=== PATIENT | male | born 2000 | race Caucasian/White ===

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

== ENCOUNTER → 2020-01-17 12:23 | Outpatient (CLI) | payer OTHER, SELFPAY ==
[2020-01-21 20:07] LABS: QNTFERON TB Mitogen Value > 10.00 IU/mL (.); QNTFERON TB Nil Value 0.06 IU/mL (.); QNTFERON TB1+ Ag Value 0.07 IU/mL (.); QNTFERON TB2+ Ag Value 0.07 IU/mL (.)
[2020-01-22 15:16] LABS: QNTIFERON TB Positive Criteria Negative (Negative)
== END ==
PROVIDERS: PCP Pediatrics; Referring Provider Dermatology; Visit Provider Dermatology
DX: L40.0 Psoriasis vulgaris (principal); L70.0 Acne vulgaris; Z79.899 Other long term (current) drug therapy
CPT/HCPCS: 36415; 86480

== ENCOUNTER → 2021-12-08 | Outpatient (CLI) | payer OTHER, MEDICAID, SELFPAY ==
[2021-12-08 17:44] LABS: Absolute Lymphocyte Count 1.55 X10^3/uL (0.83-4.51); Absolute Neutrophil Count 4.8 X10^3/uL (2.0-7.7); Basophil# 0.04 X10^3/uL; Basophil% 0.6 % (0-1); Eosinophil# 0.27 X10^3/uL; Eosinophils% 3.7 % (0-5); Hematocrit 45.1 % (40-54); Hemoglobin 14.9 g/dL (13.0-16.5); Lymphocyte # 1.55 X10^3/ul (0.83-4.51); Lymphocyte % 21.5 % (19-41); Mean Corpuscular Hgb 29.4 pg (27.0-32.0); Mean Platelet Vol. 9.1 fl (6.2-12.0); Monocyte# 0.54 X10^3/uL; Monocyte% 7.5 % (0-10); NRBC Flagged by Analyzer 0 % (0-5); Neutrophil # 4.77 X10^3/uL (2.7-7.7); Neutrophil % 66.1 % (47-70); Platelet Count 243 K/mm3 (150-450); RBC Distribution Width CV 12.9 % (11.6-14.6); RBC Distribution Width SD 41.7 fl (35.1-43.9); Red Blood Count 5.07 M/mm3 (4.6-6.2); White Blood Count 7.2 K/mm3 (4.4-11.0)
[2021-12-08 19:21] LABS: AST(SGOT) 16 U/L (15-37); Alanine Aminotransfer ALT/SGPT 28 U/L (16-61); Albumin, Serum 4.1 g/dL (3.2-5.0); Alkaline Phosphatase 63 U/L (45-117); Anion Gap 4 (5-15); BUN 13 mg/dL (7-18); BUN/Creat Ratio 13.7 RATIO (10-20); Bilirubin, Direct 0.15 mg/dL (0.00-0.30); Calcium,Total 9.2 mg/dL (8.5-10.1); Chloride 107 mmol/L (98-107); Creatinine, Serum 0.95 mg/dL (0.70-1.30); EST Glomerular Filtration Rate 105 mL/min (>60); Est Glom Filt Rate - Afr Amer 128 mL/min (>60); Globulin 3.9 g/dL (2.2-4.2); Glucose 86 mg/dL (74-106); Potassium 3.9 mmol/L (3.5-5.1); Sodium Level 138 mmol/L (136-145)
[2021-12-10 20:08] LABS: QNTFERON TB Mitogen Value > 10.00 IU/mL (.); QNTFERON TB Nil Value 0.02 IU/mL (.); QNTFERON TB1+ Ag Value 0.03 IU/mL (.); QNTFERON TB2+ Ag Value 0.02 IU/mL (.)
[2021-12-10 22:21] LABS: QNTIFERON TB Positive Criteria Negative (Negative)
== END | disposition home or self-care (01) ==
LOC: MTLAB 15:19
PROVIDERS: PCP Pediatrics; Referring Provider Dermatology; Visit Provider Dermatology
DX: L40.0 Psoriasis vulgaris (principal); Z79.899 Other long term (current) drug therapy
CPT/HCPCS: 36415; 80048; 80076; 85025; 86480

== ENCOUNTER 2022-07-01 20:13 | Emergency (ER) | payer MEDICAID, SELFPAY ==
[2022-07-01 20:15] VITALS: BP 141/98; PULSE 93; RESP 18; TEMP 36.6; O2SAT 95; BMI 31.6
--- NOTE | 2022-07-01 21:09 | EX.ED.VIS.PS ---
HPI HPI - Psych History of Present Illness Chief Complaint: Suicidal Narrative Narrative: 22-year-old male presenting with longstanding history of depression. He states he sees somebody at the counseling center. He states initially he thought this was helping but over the last several months he feels like its not. Tonight he felt acutely like he would hurt himself if he did not get seen and taken care of. He does not have a specific plan. No history of suicide attempt for the patient. He is not homicidal. He is not having hallucinations. He feels as if he is going downhill from a mental health standpoint. He thinks if he does not see a psychiatrist he is likely to hurt himself. He spoke to the counseling center who referred him to the ED. PFSH PFSH Home Medications clonidine HCl 0.3 mg tablet 0.3 mg PO QHS 07/02/22 [History Last Taken Unknown] Allergy/AdvReac Type Severity Reaction Status Date / Time No Known Allergies Allergy Verified 07/01/22 20:14 Social History Smoking Status: Never smoker ROS ROS ED Constitutional Constitutional ED: Denies chills, fever(s) or sweats Eyes Eyes: Denies blurry vision or change in vision ENT ENT ED: Denies ear pain or sore throat Cardiovascular Cardiovascular: Denies chest pain, palpitations or racing heartbeat Respiratory/Chest Respiratory/Chest: Denies cough, dyspnea or sputum Gastrointestinal Gastrointestinal: Denies abdominal pain, constipation, diarrhea, nausea or vomiting Genitourinary Genitourinary ED: Denies dysuria, hematuria or urinary frequency Musculoskeletal Musculoskeletal: Denies arthralgias, myalgias or neck pain Integumentary Denies abscess, Abrasions or rash Neurologic Neurologic: Denies headache(s), paresthesias or weakness Psychiatric Psychiatric: Reports depression, suicidal ideation and suicidal thoughts; Denies anxiety Endocrine Endocrinology: Denies polydipsia or polyuria EXAM Physical Exam Const Vital Signs: 07/01/22 20:15 07/01/22 21:13 Temperature 98 F Temperature Source Temporal Pulse Rate 93 Respiratory Rate 18 16 Blood Pressure 141/98 H Blood Pressure Mean 112 Pulse Ox 95 Oxygen Delivery Method Room Air General Appearance ED: Negative for pallor HEENT Reports normocephalic, head/scalp atraumatic and moist mucous membranes Eyes PERRL and EOMs intact bilaterally Neck no lymphadenopathy and supple Chest Wall inspection of chest normal and palpation of chest normal Resp normal respiratory effort and clear to auscultation bilaterally Auscultation: Negative for rales, rhonchi or wheezes Cardio regular rate and regular rhythm GI normal to inspection, nondistended, normoactive bowel sounds and non-distended Auscultation: normoactive bowel sounds Palpation: soft Narrative: Deferred Extremity normal to inspection General Extremety ED: Yes edema and tenderness General Extremity: edema Neuro oriented x3 and CN's II-XII intact bilaterally Sensorium / Orientation: alert Motor Exam: strength 5/5 throughout Psych cooperative, denies hallucinations and denies homicidal ideation Appearance: grossly normal Attitude: calm, evasive and No agitated Activity / Motor Behavior: avoids eye contact; Negative for disorganized Speech: normal speech Mood & Affect: sad, tearful and flat affect Thought Process: No disorganized, No confabulating, No flight of ideas and No illogical Thought Content: suicidality, No homicidality, No phobia(s) and No ideas of reference Attention / Concentration: attention grossly intact Memory / Cognition: memory grossly intact Insight: limited Judgement: limited Skin no rashes or lesions noted and no wounds General Skin Exam: Negative for jaundice or pallor MDM MDM MDM Narrative Medical decision making narrative: Patient expressing suicidal thoughts without a significant plan. He does feel as though he might hurt himself if he does not get to psychiatry soon. No history of suicide attempt reported. Obtained medical clearance lab work and his CBC and BMP are normal. EtOH negative. Urine drug screen negative. Rapid COVID-negative. Patient medically cleared for this management to evaluate him. Patient signed out to incoming ED physician for disposition after evaluated. Impression: 1. Suicidal thoughts 2. Depression Lab Data Attestation: I reviewed the patient's lab results. Labs: Laboratory Results - last 24 hr 07/01/22 07/01/22 07/01/22 21:00 21:00 21:00 WBC 7.7 RBC 5.50 Hgb 16.0 Hct 47.6 MCV 86.5 MCH 29.1 MCHC 33.6 RDW Std Deviation 39.8 RDW Coeff of Maribell 12.6 Plt Count 246 MPV 8.9 Immature Gran % (Auto) 0.300 Neut % (Auto) 64.9 Lymph % (Auto) 20.5 [place] % (Auto) 10.1 H Eos % (Auto) 3.4 Baso % (Auto) 0.8 Absolute Neuts (auto) 5.0 Absolute Lymphs (auto) 1.57 Nucleated RBC % 0 Sodium 139 Potassium 3.9 Chloride 108 H Carbon Dioxide 28.0 Anion Gap 3 L BUN 10 Creatinine 0.94 Estim Creat Clear Calc 123.27 Est GFR (MDRD) Af Amer 128 Est GFR (MDRD) Non-Af 106 BUN/Creatinine Ratio 10.6 Glucose 91 Calcium 9.4 Urine Opiates Screen Urine Methadone Screen Ur Barbiturates Screen Ur Phencyclidine Scrn Ur Amphetamines Screen MDMA (Ecstasy) Screen U Benzodiazepines Scrn Urine Cocaine Screen U Cannabinoids Screen Ur Drug Screen Comment Ethyl Alcohol 4.0 07/01/22 21:35 WBC RBC Hgb Hct MCV MCH MCHC RDW Std Deviation RDW Coeff of Maribell Plt Count MPV Immature Gran % (Auto) Neut % (Auto) Lymph % (Auto) [place] % (Auto) Eos % (Auto) Baso % (Auto) Absolute Neuts (auto) Absolute Lymphs (auto) Nucleated RBC % Sodium Potassium Chloride Carbon Dioxide Anion Gap BUN Creatinine Estim Creat Clear Calc Est GFR (MDRD) Af Amer Est GFR (MDRD) Non-Af BUN/Creatinine Ratio Glucose Calcium Urine Opiates Screen NEGATIVE Urine Methadone Screen NEGATIVE Ur Barbiturates Screen NEGATIVE Ur Phencyclidine Scrn NEGATIVE Ur Amphetamines Screen NEGATIVE MDMA (Ecstasy) Screen NEGATIVE U Benzodiazepines Scrn NEGATIVE Urine Cocaine Screen NEGATIVE U Cannabinoids Screen NEGATIVE Ur Drug Screen Comment Ethyl Alcohol Discharge Plan Triage Chief Complaint: Suicidal ED Provider: Diaz Hsu Dx/Rx/DC Orders Prescriptions: No Action clonidine HCl 0.3 mg tablet 0.3 mg PO QHS Label Comments: TAKE 1 TABLET BY MOUTH EVERYDAY AT BEDTIME Primary Care Provider: Chantal Chandler NP Referrals: Chantal Chandler CLINICAL LAB SCIENTIST, CLINICAL LAB SCIENTIST-C [Primary Care Provider] - Disposition Disposition: Psychiatric Hospital or Unit Discharge Location: [facility] Discharge Date/Time: 07/02/22 10:42
[2022-07-01 21:13] VITALS: RESP 16
[2022-07-01 21:18] LABS: Absolute Lymphocyte Count 1.57 X10^3/uL (0.83-4.51); Basophil# 0.06 X10^3/uL; Basophil% 0.8 % (0-1); Eosinophil# 0.26 X10^3/uL; Eosinophils% 3.4 % (0-5); Hematocrit 47.6 % (40-54); Lymphocyte # 1.57 X10^3/ul (0.83-4.51); Lymphocyte % 20.5 % (19-41); Mean Corp Hgb Conc 33.6 g/dL (32-36); Mean Corpuscular Hgb 29.1 pg (27.0-32.0); Mean Corpuscular Volume 86.5 fL (80-94); Mean Platelet Vol. 8.9 fl (6.2-12.0); Monocyte# 0.77 X10^3/uL; Monocyte% 10.1 % (0-10); NRBC Flagged by Analyzer 0 % (0-5); Neutrophil # 4.97 X10^3/uL (2.7-7.7); Neutrophil % 64.9 % (47-70); Platelet Count 246 K/mm3 (150-450); RBC Distribution Width CV 12.6 % (11.6-14.6); RBC Distribution Width SD 39.8 fl (35.1-43.9); White Blood Count 7.7 K/mm3 (4.4-11.0)
[2022-07-01 21:31] LABS: Anion Gap 3 (5-15); BUN 10 mg/dL (7-18); BUN/Creat Ratio 10.6 RATIO (10-20); Calcium,Total 9.4 mg/dL (8.5-10.1); Chloride 108 mmol/L (98-107); Creatinine, Serum 0.94 mg/dL (0.70-1.30); EST Glomerular Filtration Rate 106 mL/min (>60); Est Glom Filt Rate - Afr Amer 128 mL/min (>60); Estimated Creatinine Clearance 123.27 ml/min; Glucose 91 mg/dL (74-106); Potassium 3.9 mmol/L (3.5-5.1); Sodium Level 139 mmol/L (136-145)
[2022-07-01 22:00] VITALS: RESP 16
[2022-07-01 22:01] LABS: Amphetamine Urine VISTA NEGATIVE (<1000 ng/mL); Barbiturate Urine VISTA NEGATIVE (< 200 ng/mL); Benzodiazepine Urine VISTA NEGATIVE (< 200 ng/mL); Cocaine Urine VISTA NEGATIVE (< 300 ng/mL); Ecstacy Urine VISTA NEGATIVE (< 500 ng/mL); Methadone Urine VISTA NEGATIVE (< 300 ng/mL); PCP Urine VISTA NEGATIVE (< 25 ng/mL); THC Urine VISTA NEGATIVE (< 50 ng/mL); Vista UDS pH Range 6
--- NOTE | 2022-07-01 22:14 | ED.RN ---
CRISIS CALLED AT [phone]
[2022-07-02] VITALS (9 sets, daily range): BP systolic 111–141; BP diastolic 79–85; PULSE 75–104; RESP 15–19; TEMP 36.9; O2SAT 16–100
[2022-07-02] MEDS: Clonidine HCl 0.1 MG, Clonidine HCl 0.2 MG 0.3 MG PO (02:24)
--- NOTE | 2022-07-02 05:21 | ED.RN ---
ACCEPTED AT [facility]
--- NOTE | 2022-07-02 08:36 | ED.RN ---
PINK SLIP FAXED TO [facility]
--- NOTE | 2022-07-02 10:35 | NURSING ---
07/02/22@ 1020- Multiple attempts to call [facility] for nurse to nurse report.Transport is currently at hospital to take patient to [facility]. [employer] Service Mechanic is on phone trying to get a hold of hospital.
== END 2022-07-02 10:42 ==
PROVIDERS: Emergency Provider Student in an Organized Health Care Education/Training Program; PCP Clinical Nurse Specialist; Visit Provider Student in an Organized Health Care Education/Training Program
DX: F32.A Depression, unspecified (principal); R45.851 Suicidal ideations; Z20.822 Contact with and (suspected) exposure to COVID-19; Z79.899 Other long term (current) drug therapy
CPT/HCPCS: 80048; 80307; 82077; 85025; 87811; 99284

== ENCOUNTER → 2022-12-01 | Outpatient (CLI) | payer MEDICAID, SELFPAY ==
[2022-12-01 12:09] LABS: Absolute Neutrophil Count 4.7 X10^3/uL (2.0-7.7); Basophil# 0.07 X10^3/uL; Basophil% 0.9 % (0-1); Eosinophil# 0.26 X10^3/uL; Eosinophils% 3.5 % (0-5); Hematocrit 49.9 % (40-54); Hemoglobin 16.3 g/dL (13.0-16.5); Lymphocyte % 22.8 % (19-41); Mean Corp Hgb Conc 32.7 g/dL (32-36); Mean Corpuscular Hgb 28.5 pg (27.0-32.0); Mean Corpuscular Volume 87.4 fL (80-94); Mean Platelet Vol. 9.2 fl (6.2-12.0); Monocyte# 0.76 X10^3/uL; Monocyte% 10.2 % (0-10); NRBC Flagged by Analyzer 0 % (0-5); Neutrophil # 4.65 X10^3/uL (2.7-7.7); Neutrophil % 62.3 % (47-70); Platelet Count 226 K/mm3 (150-450); RBC Distribution Width CV 13.1 % (11.6-14.6); RBC Distribution Width SD 41.8 fl (35.1-43.9); Red Blood Count 5.71 M/mm3 (4.6-6.2); White Blood Count 7.5 K/mm3 (4.4-11.0)
[2022-12-01 12:36] LABS: AST(SGOT) 17 U/L (15-37); Alanine Aminotransfer ALT/SGPT 31 U/L (16-61); Albumin, Serum 4.1 g/dL (3.2-5.0); Alkaline Phosphatase 76 U/L (45-117); Anion Gap 9 (5-15); BUN 13 mg/dL (7-18); BUN/Creat Ratio 13.1 RATIO (10-20); Calcium,Total 9.4 mg/dL (8.5-10.1); Chloride 106 mmol/L (98-107); Creatinine, Serum 0.99 mg/dL (0.70-1.30); EST Glomerular Filtration Rate 100 mL/min (>60); Est Glom Filt Rate - Afr Amer 121 mL/min (>60); Glucose 80 mg/dL (74-106); Potassium 3.5 mmol/L (3.5-5.1); Protein, Total 8.1 g/dL (6.4-8.2); Sodium Level 140 mmol/L (136-145)
[2022-12-01 15:45] LABS: Hepatitis B Surface Antibody Non-Reactive
[2022-12-03 14:08] LABS: HEPATITIS B SURFACE AG Negative (Negative); Hep C Antibodies Non Reactive (Non Reactive); Hepatitis A AB, Total Positive (Negative); Hepatitis A IgM Antibody Negative (Negative); Hepatitis B Core AB IgM Negative (Negative); QNTFERON TB Mitogen Value > 10.00 IU/mL (.); QNTFERON TB Nil Value 0.36 IU/mL (.); QNTFERON TB1+ Ag Value 0.39 IU/mL (.); QNTFERON TB2+ Ag Value 0.37 IU/mL (.); QNTIFERON TB Positive Criteria Negative (Negative)
== END | disposition home or self-care (01) ==
LOC: MTLAB 10:49
PROVIDERS: PCP Clinical Nurse Specialist; Referring Provider Physician Assistant; Visit Provider Physician Assistant
DX: L40.0 Psoriasis vulgaris (principal); Z79.899 Other long term (current) drug therapy
CPT/HCPCS: 36415; 80053; 80074; 85025; 86480; 86706; 86708

== ENCOUNTER → 2024-03-14 | Outpatient (CLI) | payer OTHER, MEDICAID, SELFPAY ==
[2024-03-16 18:07] LABS: QNTFERON TB Mitogen Value > 10.00 IU/mL (.); QNTFERON TB Nil Value 0 IU/mL (.); QNTFERON TB1+ Ag Value 0.05 IU/mL (.); QNTFERON TB2+ Ag Value 0.06 IU/mL (.); QNTIFERON TB Positive Criteria Negative (Negative)
== END | disposition home or self-care (01) ==
PROVIDERS: Referring Provider Physician Assistant; Visit Provider Physician Assistant
DX: L40.0 Psoriasis vulgaris (principal); Z79.899 Other long term (current) drug therapy
CPT/HCPCS: 36415; 86480

== ENCOUNTER 2024-12-18 08:00 | Outpatient (RCR) | payer BC, MEDICAID, SELFPAY ==
--- NOTE | 2024-12-18 09:00 | BH.SGPN.GN ---
Behaviors/Verbalizations/Mental Status: [] Eye contact is poor. Motor activity is appropriate. Appearance is disheveled. Speech is Appropriate. Mood is depressed. Affect is flat. Thoughts are linear and logical. No evidence of psychosis. Reviewed daily check in sheet and no reports of suicidal ideations or intent. Client Response/Progress/Benefit: [] Pt participated when prompted. Attentive. Daily symptom tracker notes 08/28 for depression. This was pt?s first day in IOP and he briefly shared reasons for entering [facility] and goals. ? I?m using this as a massive learning experience?. Crisis came to his house in late October due to suicidal ideations. Reports mental health struggles have impacted his ability to maintain a job and function.? I?m just not able to due to the job mentally? ? I need to figure out what to do with my life? ? I lack direction?. Limited progress as this was first day. Benefited from group support, encouragement, and feedback. Will continue in [facility] to maintain safety, increase healthy coping, and improve functioning Narrative Note: []
--- NOTE | 2024-12-18 09:00 | BH.SGPN.GN ---
Behaviors/Verbalizations/Mental Status: [] Eye contact is poor. Motor activity is appropriate. Appearance is disheveled. Speech is Appropriate. Mood is depressed. Affect is flat. Thoughts are linear and logical. No evidence of psychosis. Reviewed daily check in sheet and no reports of suicidal ideations or intent. Client Response/Progress/Benefit: [] Pt participated when prompted. Attentive. Daily symptom tracker notes 08/28 for depression. This was pt?s first day in IOP and he briefly shared reasons for entering [facility] and goals. ? I?m using this as a massive learning experience?. Crisis came to his house in late October due to suicidal ideations. Reports mental health struggles have impacted his ability to maintain a job and function.? I?m just not able to due to the job mentally? ? I need to figure out what to do with my life? ? I lack direction?. Limited progress as this was first day. Benefited from group support, encouragement, and feedback. Will continue in [facility] to maintain safety, increase healthy coping, and improve functioning Narrative Note: []
--- NOTE | 2024-12-18 10:05 | BH.NA ---
Physical Data Vital Signs Pulse Rate: 93 Blood Pressure: 143/94 Height/Weight Height: 1.75 m Weight:: 95.254 kg Weight in Pounds: 210.0 lbs Current Medication Compliance Medication Compliance Do you take your medication as prescribed?: Yes Nutritional History Appetite Nutritional Instructions: Describe your appetite:: Good Additional nutritional information:: Client denies recent change in appetite or weight. Functional Assessment Sleep Pattern Describe any problems with sleeping: Client states he has been sleeping about 6-8 hours per night. Sensory/Communication Assess Vision Problems Do you have any vision problems?: Glasses Communication Problems Do you have difficulty understanding what people are saying?: No Medical Problems/History Musculoskeletal Conditions Musculoskeletal: Scars (facial) and Other (See comments) (psoriasis) Surgical History Surgical History Have you had any surgeries? If so, list type and date:: No Substance Abuse Substance Abuse Please describe substance abuse in the last 30 days:: Client reports occasional social alcohol use. Client denies tobacco or substance use. Client states he typically drinks 1 pop per day with caffeine. Mental Status Summary Mental Status Significant Findings/Observations on Appearance and Mood:: Client is alert and oriented x 4. Client is casually groomed. Client is cooperative with assessment. Client makes fair eye contact. Client's voice has normal rate and volume. Client has a somewhat restricted affect. Client makes logical associations and has normal processing. Client denies delusions/hallucinations. Client denies recent SI, but does report feeling survival amblivance. Suicide Assessment Suicidal Ideation Are you currently or have you been suicidal in the past?: Yes Suicidal Intentional Rating Scale (SIRS): Suicidal thoughts (past) Physician Notification Past Psychiatric History MH Treatment Hx Past Psychiatric Medications:: Celexa, Intuniv Age of first mental health symptoms: Client states he was first on medication for ADHD and depression around age 8 and was on Celexa and Intuniv for several years. Describe (age, circumstance, etc) any past hospitalizations: [place] in 2021- Client states he was admitted for about 2 weeks for a mental health crisis Current providers for mental health treatment (counselor, psychiatrist, donor recruitment manager, etc.): Client has a counselor, psychiatry [employer] and a aerospace project manager at [facility] Fall Risk Assessment Age Age: Less than 60 Mental Status Mental Status: Willing & able to ask for assistance when needed Physical Status Physical Status: No problems Impairments Impairments: None Elimination Elimination: Continent AND independent Gait or Balance Gait or Balance: Walks independently Hx of Falls History of falls in the past 6 months: No known history Medications/Substances Psychotropics:: Antidepressants Others:: Antihypertensives Medications/substances used within the past 24 hours or ordered to administer: 1-2 of the medications/substances listed above Total Score Total Points:: 1 RN Summary of Impressions Impressions Recommendations Impressions: Psychiatric Issues: 1. Major depressive disorder, recurrent, moderate 2. Generalized anxiety disorder 3. Rule out dependent traits 4. Primary support of work issues Level of Care How do the client's current symptoms and functional deficits support need for this level of care?: Client was referred to IOP by Crisis after an assessment on 11/15/24. Client states on that day, he felt like stressors were just piling up and states he was having intrusive thoughts about his family being unhappy with him. Client states his mom came home from work and did not have a good day and was yelling and this made him feel like his intrusive thoughts were right and his family had issues with him. Client states he ended up having thoughts of suicide and Crisis came to see him at home. Client denies current SI, states he has not felt suicidal since this incident. Client does report some survival ambivalence. Client reports isolating himself, some anhedonia and some guilt. IOP will promote gains and prevent further decompensation while providing social support and skills training.
--- NOTE | 2024-12-18 10:05 | BH.NA ---
Physical Data Vital Signs Pulse Rate: 93 Blood Pressure: 143/94 Height/Weight Height: 1.75 m Weight:: 95.254 kg Weight in Pounds: 210.0 lbs Current Medication Compliance Medication Compliance Do you take your medication as prescribed?: Yes Nutritional History Appetite Nutritional Instructions: Describe your appetite:: Good Additional nutritional information:: Client denies recent change in appetite or weight. Functional Assessment Sleep Pattern Describe any problems with sleeping: Client states he has been sleeping about 6-8 hours per night. Sensory/Communication Assess Vision Problems Do you have any vision problems?: Glasses Communication Problems Do you have difficulty understanding what people are saying?: No Medical Problems/History Musculoskeletal Conditions Musculoskeletal: Scars (facial) and Other (See comments) (psoriasis) Surgical History Surgical History Have you had any surgeries? If so, list type and date:: No Substance Abuse Substance Abuse Please describe substance abuse in the last 30 days:: Client reports occasional social alcohol use. Client denies tobacco or substance use. Client states he typically drinks 1 pop per day with caffeine. Mental Status Summary Mental Status Significant Findings/Observations on Appearance and Mood:: Client is alert and oriented x 4. Client is casually groomed. Client is cooperative with assessment. Client makes fair eye contact. Client's voice has normal rate and volume. Client has a somewhat restricted affect. Client makes logical associations and has normal processing. Client denies delusions/hallucinations. Client denies recent SI, but does report feeling survival amblivance. Suicide Assessment Suicidal Ideation Are you currently or have you been suicidal in the past?: Yes Suicidal Intentional Rating Scale (SIRS): Suicidal thoughts (past) Physician Notification Past Psychiatric History MH Treatment Hx Past Psychiatric Medications:: Celexa, Intuniv Age of first mental health symptoms: Client states he was first on medication for ADHD and depression around age 8 and was on Celexa and Intuniv for several years. Describe (age, circumstance, etc) any past hospitalizations: [place] in 2021- Client states he was admitted for about 2 weeks for a mental health crisis Current providers for mental health treatment (counselor, psychiatrist, rn field case manager, etc.): Client has a counselor, psychiatry [employer]ER and a manager of case management at [facility] Fall Risk Assessment Age Age: Less than 60 Mental Status Mental Status: Willing & able to ask for assistance when needed Physical Status Physical Status: No problems Impairments Impairments: None Elimination Elimination: Continent AND independent Gait or Balance Gait or Balance: Walks independently Hx of Falls History of falls in the past 6 months: No known history Medications/Substances Psychotropics:: Antidepressants Others:: Antihypertensives Medications/substances used within the past 24 hours or ordered to administer: 1-2 of the medications/substances listed above Total Score Total Points:: 1 RN Summary of Impressions Impressions Recommendations Impressions: Psychiatric Issues: 1. Major depressive disorder, recurrent, moderate 2. Generalized anxiety disorder 3. Rule out dependent traits 4. Primary support of work issues Level of Care How do the client's current symptoms and functional deficits support need for this level of care?: Client was referred to IOP by Crisis after an assessment on 11/15/24. Client states on that day, he felt like stressors were just piling up and states he was having intrusive thoughts about his family being unhappy with him. Client states his mom came home from work and did not have a good day and was yelling and this made him feel like his intrusive thoughts were right and his family had issues with him. Client states he ended up having thoughts of suicide and Crisis came to see him at home. Client denies current SI, states he has not felt suicidal since this incident. Client does report some survival ambivalence. Client reports isolating himself, some anhedonia and some guilt. IOP will promote gains and prevent further decompensation while providing social support and skills training.
--- NOTE | 2024-12-18 10:15 | BH.SGPN.GN ---
Behaviors/Verbalizations/Mental Status: []Pt alert and oriented, disheveled appearance. Eye contact good. Motor activity appropriate. Speech within normal limits. Affect congruent, mood depressed. Thoughts linear, logical, no signs of hallucinations or delusions. Client Response/Progress/Benefit: []Pt was attentive during psychoeducation and participated in group activity. Group discussed what contributes to a person?s perspective and how perspective can positively or negatively impact mental health treatment. Pt reflected on their perspective today and how it is impacting them. Pt shared their perspective is not too positive and not too negative as pt is trying to keep an open-mind about IOP but there is some anxiety and doubt.?Pt appeared to benefit from increasing awareness of different perspectives and how they can affect mental health. Pt will continue IOP tx to prevent decompensation, improve daily functioning, and gain healthy coping skills. Narrative Note: []
--- NOTE | 2024-12-18 11:15 | BH.SGPN.GN ---
Behaviors/Verbalizations/Mental Status: []Pt alert and oriented, casually dressed and groomed. Eye contact fair. Motor activity appropriate. Speech within normal limits. Affect congruent, mood anxious. Thoughts linear, logical, no signs of hallucinations or delusions. Client Response/Progress/Benefit: []Pt was attentive and contributed to group discussion. Pt worked with group to identify strategies that can help with challenging negative perspective. Pt stated they can practice identifying gratitude and looking at evidence against a thought can help challenge negative perspective. Pt completed strengths exploration worksheet, identifying personal strengths. Pt able to acknowledge how these strengths are helping pt and can continue to help pt in mental health journey. Benefited from identifying personal strengths and strategies for enhancing use of identified strengths. Pt will continue IOP tx to improve daily functioning, challenge negative thoughts, and prevent decompensation.
[2024-12-18 11:32] VITALS: PULSE 93
[2024-12-18 11:33] VITALS: BP 143/94
--- NOTE | 2024-12-18 12:13 | BH.PSA_ITS ---
Source of Information Presenting Problems/Circumstances Problems, Referral Source, Mental Status, Client: Patient is a 24-year-old single male with a history of depression and anxiety who was referred to the [facility] behavioral health IOP by the crisis team after an in-home assessment on November 15, 2024 where the patient verbalized suicidal ideation. Patient states that conflict in the family triggered his passive suicidal ideation. He states that he was never actively suicidal and denies having a specific plan for suicide ever. At the intake appointment 3 weeks ago for IOP the patient had stated that he felt he was a waste of air and better off . But the patient states that in recent weeks he has begun to feel much better. Pt has struggled throughout his life with maintaining a job. Pt stated he has lost majority of his jobs due to his mental health interfering with his job duties. Pt last worked September 2024. He endorses recent sadness, occasional hopelessness but denies worthlessness. He does endorse guilt and passive thoughts of on most days. Psychiatric Presentation Psych Issues & Need for Admission Psychiatric Issues:: 1. Major depressive disorder, recurrent, moderate 2. Generalized anxiety disorder 3. Rule out dependent traits 4. Primary support of work issues Past Psychiatric History MH Treatment Hx Treatment History: 1 psych admit at [facility] in 2021 for depression and suicidal ideation. No suicide attempts ever. He has case management since 1 year ago. He has had a counselor for that he sees every 1 to 2 months but he sees his residential case manager every week. He was first depressed at age 8 and first took psych meds around age 8-10. Past meds include being on Celexa, Intuniv through high school from age [address] through high school. First hospitalization:: 2021 Most recent hospitalization:: 2021 ECT Therapy:: No Age of first mental health symptoms: 10 years old Describe (age, circumstance, etc) any past hospitalizations: Client hospitalized for suicidal thoughts at [facility], no attempts. Current providers for mental health treatment (counselor, psychiatrist, manager case management, etc.): Established at the counseling center with counselor and case manag ement. Development & Family of Origin Childhood Significant Childhood Events: He describes his childhood as okay. He was bullied in school a lot but said his parents were both loving and he had a lot of friends growing up. Family Who currently lives in your home?: Patient currently lives with his mother and father and his 15-year-old and 23-year-old brothers. Describe family composition:: Client describes parents as loving and supportive. Client has a good relationship with his 15 year old and 23 year old brothers. Family History Family Hx of Psychiatric or AOD Problems: Mother is 55 and father is 52 years old. Mother and father both have depression and anxiety and he thinks they both take Celexa. His father attempted suicide 1 time. He has a paternal uncle and a cousin who by suicide. No substance issues in the family. Mental Status Memory Recent Memory: Fair Remote Memory: Fair Concentration Concentration: Fair Eye Contact Eye Contact: Good Speech Speech: Congruent Thought Process Thought Process: Logical and Ruminations Insight: Fair Judgment: Fair Behavior: Anxious Orientation Orientation: Time, Person, Place and Situation Appearance Appearance: Disheveled Mood Mood: Anxious and Depressed Affect Affect: Appropriate/calm Suicide Assessment Suicidal Ideation Have you ever felt like hurting yourself?: Yes Please explain:: On November 15, 2024 the patient verbalized suicidal ideation and was assessed by crisis whom referred pt to IOP. Patient states that conflict in the family triggered his passive suicidal ideation. He states that he was never actively suicidal and denies having a specific plan for suicide ever. At the intake appointment 3 weeks ago the patient had stated that he felt he was a waste of air and better off . But the patient states that in recent weeks he has begun to feel much better. Previous hospitalization in 2021 for suicidal ideation. No suicide attempts. Denies active suicidal thoughts, plan, or intention currently. Suicidal Intentional Rating Scale (SIRS): Suicidal thoughts (past) Physician Notification Violent Behavior/Abuse History Homicidal Ideation Do you have any homicidal thoughts? If so, explain:: No Is there a known potential victim? If yes, who:: No Abuse Have you ever been abused?: No Safety Do you ever feel threatened in your home? If yes, describe:: No Adult Social History Age 18 to Present Describe your current support system:: Describes his residential case manager to be biggest support. Sees his residential case manager weekly. Substance Use Substance Substance Use Type: Alcohol Specific Drugs What specific drugs have you used?: Alcohol use occasional every few months only. Education & Occupational Histo Education What is your level of education?: High School Occupation List any current or past employment:: He has had jobs as a cook, concessions, manager advanced another but the longest job he is ever had has been for 1 year. Client reported he struggles with maintaining a job. Service Service Have you ever been in the ?: No Legal History Records Have you had any past legal charges?: No Do you have any current legal charges?: No Have you ever been incarcerated? If yes, describe:: No Court Orders Have you had any past court orders for psychiatric treatment?: No Do you have a present court order for psychiatric treatment?: No Problem Checklist Current Problem Areas Problem List: Depressed mood/sad, Anxiety, Inattention, Mood swings/hyperactivity and Sleep problems Flame Degreaser's Assessment Client's Needs What are the client's feelings about the program?: Client reported feeling excited to learn new strategies to manage his mental health. What are the client's goals?: Client would like to learn skills to manage his mental health symptoms more effectively. Diagnoses Diagnoses Diagnosis #1:: Major depressive disorder, recurrent, moderate F33.1 Diagnosis #2:: Generalized Anxiety Disorder Diagnosis #3:: Rule Out dependent disorder Interpretive Summary Interpretive Summary Interpretive Summary: Patient is a 24-year-old single male with a history of depression and anxiety who was referred to the [facility] by the crisis team after an in-home assessment on November 15, 2024 where the patient verbalized suicidal ideation. Patient currently lives with his mother and father and his 15-year-old and 23-year-old brothers. Patient states that conflict in the family triggered his passive suicidal ideation. He states that he was never actively suicidal and denies having a specific plan for suicide ever. At the intake appointment only 2 2 to 3 weeks ago the patient had stated that he felt he was a waste of air and better off . But the patient states that in recent weeks he has begun to feel much better. He feels that since November 15, 2024 his symptoms have improved and now his biggest stress is that he is worried about what he will do with his life in the future. The patient last worked October 04, 2024 and his job at a [employer] and he quit the job because he states that there were issues with the management. He had worked there for 1 year. For primary support the patient has a his residential case manager who he sees every week. He endorses recent sadness, occasional hopelessness but denies worthlessness. He does endorse guilt and passive thoughts of on most days. He enjoys playing video games and being on YouTube. Sleep appetite and weight are stable and his sleep is about 6 to 8 hours a night but the patient admits that he does not keep regular sleep-wake hours. Energy and concentration are okay. He denies any suicidal ideation since November 15, 2024. He denies homicidal ideation, hallucinations, delusions or symptoms of mima ever. He is a worrier by nature and ruminates negatively. He denies panic attacks, OCD, eating disorder, trauma, PTSD, seizure or head trauma. Treatment Plan Recommendations Recommendations Guidelines Recommendations:: The patient will start the IOP and behavioral health at [facility] as the structure, support, education and group therapy will hopefully prevent worsening of the patient's symptoms which could require hospitalization.
--- NOTE | 2024-12-18 12:13 | BH.PSA_ITS ---
Source of Information Presenting Problems/Circumstances Problems, Referral Source, Mental Status, Client: Patient is a 24-year-old single male with a history of depression and anxiety who was referred to the [facility] behavioral health IOP by the crisis team after an in-home assessment on November 15, 2024 where the patient verbalized suicidal ideation. Patient states that conflict in the family triggered his passive suicidal ideation. He states that he was never actively suicidal and denies having a specific plan for suicide ever. At the intake appointment 3 weeks ago for IOP the patient had stated that he felt he was a waste of air and better off . But the patient states that in recent weeks he has begun to feel much better. Pt has struggled throughout his life with maintaining a job. Pt stated he has lost majority of his jobs due to his mental health interfering with his job duties. Pt last worked September 2024. He endorses recent sadness, occasional hopelessness but denies worthlessness. He does endorse guilt and passive thoughts of on most days. Psychiatric Presentation Psych Issues & Need for Admission Psychiatric Issues:: 1. Major depressive disorder, recurrent, moderate 2. Generalized anxiety disorder 3. Rule out dependent traits 4. Primary support of work issues Past Psychiatric History MH Treatment Hx Treatment History: 1 psych admit at [facility] in 2021 for depression and suicidal ideation. No suicide attempts ever. He has case management since 1 year ago. He has had a counselor for that he sees every 1 to 2 months but he sees his manager of case management every week. He was first depressed at age 8 and first took psych meds around age 8-10. Past meds include being on Celexa, Intuniv through high school from age [address] through high school. First hospitalization:: 2021 Most recent hospitalization:: 2021 ECT Therapy:: No Age of first mental health symptoms: 10 years old Describe (age, circumstance, etc) any past hospitalizations: Client hospitalized for suicidal thoughts at [facility], no attempts. Current providers for mental health treatment (counselor, psychiatrist, disease case manager rn, etc.): Established at the counseling center with counselor and case manag ement. Development & Family of Origin Childhood Significant Childhood Events: He describes his childhood as okay. He was bullied in school a lot but said his parents were both loving and he had a lot of friends growing up. Family Who currently lives in your home?: Patient currently lives with his mother and father and his 15-year-old and 23-year-old brothers. Describe family composition:: Client describes parents as loving and supportive. Client has a good relationship with his 15 year old and 23 year old brothers. Family History Family Hx of Psychiatric or AOD Problems: Mother is 55 and father is 52 years old. Mother and father both have depression and anxiety and he thinks they both take Celexa. His father attempted suicide 1 time. He has a paternal uncle and a cousin who by suicide. No substance issues in the family. Mental Status Memory Recent Memory: Fair Remote Memory: Fair Concentration Concentration: Fair Eye Contact Eye Contact: Good Speech Speech: Congruent Thought Process Thought Process: Logical and Ruminations Insight: Fair Judgment: Fair Behavior: Anxious Orientation Orientation: Time, Person, Place and Situation Appearance Appearance: Disheveled Mood Mood: Anxious and Depressed Affect Affect: Appropriate/calm Suicide Assessment Suicidal Ideation Have you ever felt like hurting yourself?: Yes Please explain:: On November 15, 2024 the patient verbalized suicidal ideation and was assessed by crisis whom referred pt to IOP. Patient states that conflict in the family triggered his passive suicidal ideation. He states that he was never actively suicidal and denies having a specific plan for suicide ever. At the intake appointment 3 weeks ago the patient had stated that he felt he was a waste of air and better off . But the patient states that in recent weeks he has begun to feel much better. Previous hospitalization in 2021 for suicidal ideation. No suicide attempts. Denies active suicidal thoughts, plan, or intention currently. Suicidal Intentional Rating Scale (SIRS): Suicidal thoughts (past) Physician Notification Violent Behavior/Abuse History Homicidal Ideation Do you have any homicidal thoughts? If so, explain:: No Is there a known potential victim? If yes, who:: No Abuse Have you ever been abused?: No Safety Do you ever feel threatened in your home? If yes, describe:: No Adult Social History Age 18 to Present Describe your current support system:: Describes his manager of case management to be biggest support. Sees his manager of case management weekly. Substance Use Substance Substance Use Type: Alcohol Specific Drugs What specific drugs have you used?: Alcohol use occasional every few months only. Education & Occupational Histo Education What is your level of education?: High School Occupation List any current or past employment:: He has had jobs as a cook, concessions, front window cashier another but the longest job he is ever had has been for 1 year. Client reported he struggles with maintaining a job. Service Service Have you ever been in the ?: No Legal History Records Have you had any past legal charges?: No Do you have any current legal charges?: No Have you ever been incarcerated? If yes, describe:: No Court Orders Have you had any past court orders for psychiatric treatment?: No Do you have a present court order for psychiatric treatment?: No Problem Checklist Current Problem Areas Problem List: Depressed mood/sad, Anxiety, Inattention, Mood swings/hyperactivity and Sleep problems Clinical Dermatologist's Assessment Client's Needs What are the client's feelings about the program?: Client reported feeling excited to learn new strategies to manage his mental health. What are the client's goals?: Client would like to learn skills to manage his mental health symptoms more effectively. Diagnoses Diagnoses Diagnosis #1:: Major depressive disorder, recurrent, moderate F33.1 Diagnosis #2:: Generalized Anxiety Disorder Diagnosis #3:: Rule Out dependent disorder Interpretive Summary Interpretive Summary Interpretive Summary: Patient is a 24-year-old single male with a history of depression and anxiety who was referred to the [facility] by the crisis team after an in-home assessment on November 15, 2024 where the patient verbalized suicidal ideation. Patient currently lives with his mother and father and his 15-year-old and 23-year-old brothers. Patient states that conflict in the family triggered his passive suicidal ideation. He states that he was never actively suicidal and denies having a specific plan for suicide ever. At the intake appointment only 2 2 to 3 weeks ago the patient had stated that he felt he was a waste of air and better off . But the patient states that in recent weeks he has begun to feel much better. He feels that since November 15, 2024 his symptoms have improved and now his biggest stress is that he is worried about what he will do with his life in the future. The patient last worked October 04, 2024 and his job at a [employer] and he quit the job because he states that there were issues with the management. He had worked there for 1 year. For primary support the patient has a his manager of case management who he sees every week. He endorses recent sadness, occasional hopelessness but denies worthlessness. He does endorse guilt and passive thoughts of on most days. He enjoys playing video games and being on YouTube. Sleep appetite and weight are stable and his sleep is about 6 to 8 hours a night but the patient admits that he does not keep regular sleep-wake hours. Energy and concentration are okay. He denies any suicidal ideation since November 15, 2024. He denies homicidal ideation, hallucinations, delusions or symptoms of mima ever. He is a worrier by nature and ruminates negatively. He denies panic attacks, OCD, eating disorder, trauma, PTSD, seizure or head trauma. Treatment Plan Recommendations Recommendations Guidelines Recommendations:: The patient will start the IOP and behavioral health at [facility] as the structure, support, education and group therapy will hopefully prevent worsening of the patient's symptoms which could require hospitalization.
--- NOTE | 2024-12-18 12:14 | BH.MTP ---
Master Treatment Plan Patient Information Program Physician:: Dr. Zhao Primary Therapist:: Barbara Callahan [facility] Psychiatric Diagnoses Psychiatric Diagnoses:: 1. Major depressive disorder, recurrent, moderate 2. Generalized anxiety disorder 3. Rule out dependent traits 4. Primary support of work issues Diagnosis Code(s):: F33.1 Estimated LOS Estimated LOS (in weeks):: 6 Problem/Goal #1 Problem/Goal #1 Stated Goal:: Client will decrease depressive symptoms and isolation due to Major Depressive Disorder through Intensive Outpatient Program.? Description of Barriers: Pt reports he does not have a healthy sleep routine, sometimes going to sleep at 5am and waking up at 5pm. This sleep cycle could make it challenging for client to make it to his IOP sessions considering the program starts at 9am. Additional potential barriers include: anxious thoughts, low motivation, negative thinking, and limited support. Functional Impact: Patient is a 24-year-old single male with a history of depression and anxiety who was referred to the [facility] behavioral health IOP by the crisis team after an in-home assessment on November 15, 2024 where the patient verbalized suicidal ideation. Patient states that conflict in the family triggered his passive suicidal ideation. He states that he was never actively suicidal and denies having a specific plan for suicide ever. At the intake appointment 3 weeks ago for IOP the patient had stated that he felt he was a waste of air and better off . But the patient states that in recent weeks he has begun to feel much better. Pt has struggled throughout his life with maintaining a job. Pt stated he has lost majority of his jobs due to his mental health interfering with his job duties. Pt last worked September 2024. He endorses recent sadness, occasional hopelessness but denies worthlessness. He does endorse guilt and passive thoughts of on most days. Objectives Objective #1: Stated Objective: Client will learn and utilize 2-3 healthy coping strategies to manage depressive symptoms. Interventions: Therapist will utilize CBT techniques to assist client with understanding the connection between thoughts, feelings and behaviors. Education will be provided on behavioral activation. Therapist will assist client in learning internal coping strategies to manage depressive symptoms, along with helping client identify triggers. Discharge Criteria: Client will have achieved this goal when can verbalize and has practiced at least 2 healthy coping strategies that successfully manage depressive symptoms. Target Date: 01/29/25 Review Date: 01/15/25 Objective #2: Stated Objective: Client will identify 2-3 depressive thinking patterns and be able to challenge and replace negative thoughts. Interventions: Therapist and group therapy sessions will assist client in identifying depressive thinking patterns and provide client with resources to help teach client strategies in defeating negative thoughts. Discharge Criteria: Client will have met this objective when can identify at least two depressive thinking patterns and be able to defeat depressive thoughts. Target Date: 01/29/25 Review Date: 01/15/25 Problem/Goal #2 Problem/Goal #2 Stated Goal:: Reduce overall frequency, intensity, and duration of the anxiety so that daily functioning is not impaired. Description of Barriers: Pt reports he does not have a healthy sleep routine, sometimes going to sleep at 5am and waking up at 5pm. This sleep cycle could make it challenging for client to make it to his IOP sessions considering the program starts at 9am. Additional potential barriers include: anxious thoughts, low motivation, negative thinking, and limited support. Functional Impact: Patient is a 24-year-old single male with a history of depression and anxiety who was referred to the [facility] behavioral health IOP by the crisis team after an in-home assessment on November 15, 2024 where the patient verbalized suicidal ideation. Patient states that conflict in the family triggered his passive suicidal ideation. He states that he was never actively suicidal and denies having a specific plan for suicide ever. At the intake appointment 3 weeks ago for IOP the patient had stated that he felt he was a waste of air and better off . But the patient states that in recent weeks he has begun to feel much better. Pt has struggled throughout his life with maintaining a job. Pt stated he has lost majority of his jobs due to his mental health interfering with his job duties. Pt last worked September 2024. He endorses recent sadness, occasional hopelessness but denies worthlessness. He does endorse guilt and passive thoughts of on most days. Objectives Objective #1: Stated Objective: Client will learn and implement 2-3 calming skills to reduce overall anxiety and manage anxiety symptoms. Interventions: Therapist and group sessions will help client identify physiological warning signs of anxiety, increase awareness of thoughts that increase anxiety, and identify behaviors that reinforce anxious symptoms. Group and individual counseling will teach client calming skills to help manage anxious symptoms. Discharge Criteria: Client will have achieved this goal when can verbalize at least 2 calming skills and reports skills successfully help reduce anxious symptoms. Target Date: 01/29/25 Review Date: 01/15/25 Objective #2: Stated Objective: Client will identify 2-3 anxiety triggers and 2 coping skills to use when feeling anxious. Interventions: Therapist and group therapy will assist client in exploring what triggers anxiety and teach client coping strategies to effectively manage anxiety symptoms. Discharge Criteria: Client will have met this goal when can identify at least 2 triggers to anxiety and verbalize two healthy ways to cope with feelings of anxiety. Target Date: 01/29/25 Review Date: 01/15/25
--- NOTE | 2024-12-18 13:01 | PCM.BH.PSYEV ---
Psychiatric Evaluation Initial Evaluation Initial Evaluation: History of Present Illness: [] Patient is a 24-year-old single male with a history of depression and anxiety who was referred to the [facility] behavioral health [facility] by the crisis team after an in-home assessment on November 15, 2024 where the patient verbalized suicidal ideation. Patient currently lives with his mother and father and his 15-year-old and 23-year-old brothers. Patient states that conflict in the family triggered his passive suicidal ideation. He states that he was never actively suicidal and denies having a specific plan for suicide ever. At the intake appointment only 2 2 to 3 weeks ago the patient had stated that he felt he was a waste of air and better off . But the patient states that in recent weeks he has begun to feel much better. He feels that since November 15, 2024 his symptoms have improved and now his biggest stress is that he is worried about what he will do with his life in the future. The patient last worked October 04, 2024 and his job at a [employer] and he quit the job because he states that there were issues with the management. He had worked there for 1 year. For primary support the patient has a his director of casework services who he sees every week. He endorses recent sadness, occasional hopelessness but denies worthlessness. He does endorse guilt and passive thoughts of on most days. He enjoys playing video games and being on [employer]. Sleep appetite and weight are stable and his sleep is about 6 to 8 hours a night but the patient admits that he does not keep regular sleep-wake hours. Energy and concentration are okay. He denies any suicidal ideation since November 15, 2024. He denies homicidal ideation, hallucinations, delusions or symptoms of mima ever. He is a worrier by nature and ruminates negatively. He denies panic attacks, OCD, eating disorder, trauma, PTSD, seizure or head trauma. Current Psychiatric Medications: [] Trazodone 50 mg, takes 1-2 at bedtime; clonidine 0.1 mg as needed 1-2 times a day; Trintellix of unsure dose (either 10 or 20 mg he thinks) daily and has been on this for a few months. Past Psychiatric History: [] 1 psych admit at [facility] in 2021 for depression and suicidal ideation. No suicide attempts ever. He has case management since 1 year ago. He has had a counselor for that he sees every 1 to 2 months but he sees his director of casework services every week. He was first depressed at age 8 and first took psych meds around age 8-10. Past meds include being on Celexa, Intuniv through high school from age [address] through high school. Substance Use History: [] Non-smoker. No vaping. No marijuana no drugs. Alcohol use occasional every few months only. Allergies: [] No known allergies Medications: [] Topical medication for psoriasis which he is out of. Otherwise only psych meds as dictated above. Past Medical History: [] Psoriasis with active psoriasis lesions on his bilateral hands and forearms that are visible. Patient states he has it all over his body but has not gone to see his doctor for it. He denies any other medical illnesses and he denies any surgeries. He is little bit overweight. Family Psychiatric History: [] Mother is 55 and father is 52 years old. Mother and father both have depression and anxiety and he thinks they both take Celexa. His father attempted suicide 1 time. He has a paternal uncle and a cousin who completed suicide. No substance issues in the family. Personal/Social History: [] Patient was born in [place] and raised in [facility]. He describes his childhood as okay. He was bullied in school a lot but said his parents were both loving and he had a lot of friends growing up. He denies any verbal, physical or sexual abuse ever. He has 2 brothers who live in the home with him as described in present illness. He graduated high school but no college. He has had jobs as a cook, concessions, office cashier another but the longest job he is ever had has been for 1 year. He had a serious boyfriend 1 time for 2 to 3 years and this ended in 2021 and he is single now. He is not sexually active lately. Legal History: [] No arrests. No DUIs. He does not have a carrier driver's license because he is afraid of driving. Review of Systems: [] Review of systems is negative except as noted in present illness. Vital Signs: [] Vital signs are reviewed the nurses notes and updated and the patient is deemed medically able to participate in the IOP. Mental Status Examination: [] The patient is a 24-year-old male who is seen wearing glasses and has significant acne and a murrell. He has long hair and appears mildly disheveled. He has significant psoriasis lesions on his hands and forearms bilaterally. He has no psychomotor agitation or retardation and is ambulatory with a normal gait. Eye contact is fair but he closes his eyes at times when speaking. Speech is normal rate and rhythm and fluent with no pressure. Mood is depressed and anxious. Affect is mildly constricted. Thought process is goal-directed and organized. Thought content: There is evidence of passive thoughts of . There is no evidence of active suicidal ideation, homicidal ideation, hallucinations, delusions or symptoms of mima. Reality testing is intact. Intelligence is average at best. Judgment is intact. Insight is limited. Impulsivity is moderate. Diagnoses: [] 1. Major depressive disorder, recurrent, moderate 2. Generalized anxiety disorder 3. Rule out dependent traits 4. Primary support of work issues Plan: [] The patient will start the IOP and behavioral health at [facility] as the structure, support, education and group therapy will hopefully prevent worsening of the patient's symptoms which could require hospitalization. The risk, options, possible complications and side effects of the medications were discussed with the patient he understands accepts these. No medication changes were made today as the patient is not sure what dose of Trintellix he is on. He will find out the dose and let us know what it is. In addition he agrees to make an appointment for his psoriasis so he starts feeling better. He will continue to follow-up with his outpatient providers and eye doctor in 2 weeks.
--- NOTE | 2024-12-18 13:01 | PCM.BH.PSYEV ---
Psychiatric Evaluation Initial Evaluation Initial Evaluation: History of Present Illness: [] Patient is a 24-year-old single male with a history of depression and anxiety who was referred to the [facility] behavioral health [facility] by the crisis team after an in-home assessment on November 15, 2024 where the patient verbalized suicidal ideation. Patient currently lives with his mother and father and his 15-year-old and 23-year-old brothers. Patient states that conflict in the family triggered his passive suicidal ideation. He states that he was never actively suicidal and denies having a specific plan for suicide ever. At the intake appointment only 2 2 to 3 weeks ago the patient had stated that he felt he was a waste of air and better off . But the patient states that in recent weeks he has begun to feel much better. He feels that since November 15, 2024 his symptoms have improved and now his biggest stress is that he is worried about what he will do with his life in the future. The patient last worked October 04, 2024 and his job at a [email or web address] and he quit the job because he states that there were issues with the management. He had worked there for 1 year. For primary support the patient has a his director of casework services who he sees every week. He endorses recent sadness, occasional hopelessness but denies worthlessness. He does endorse guilt and passive thoughts of on most days. He enjoys playing video games and being on [employer]. Sleep appetite and weight are stable and his sleep is about 6 to 8 hours a night but the patient admits that he does not keep regular sleep-wake hours. Energy and concentration are okay. He denies any suicidal ideation since November 15, 2024. He denies homicidal ideation, hallucinations, delusions or symptoms of mima ever. He is a worrier by nature and ruminates negatively. He denies panic attacks, OCD, eating disorder, trauma, PTSD, seizure or head trauma. Current Psychiatric Medications: [] Trazodone 50 mg, takes 1-2 at bedtime; clonidine 0.1 mg as needed 1-2 times a day; Trintellix of unsure dose (either 10 or 20 mg he thinks) daily and has been on this for a few months. Past Psychiatric History: [] 1 psych admit at [facility] in 2021 for depression and suicidal ideation. No suicide attempts ever. He has case management since 1 year ago. He has had a counselor for that he sees every 1 to 2 months but he sees his director of casework services every week. He was first depressed at age 8 and first took psych meds around age 8-10. Past meds include being on Celexa, Intuniv through high school from age [address] through high school. Substance Use History: [] Non-smoker. No vaping. No marijuana no drugs. Alcohol use occasional every few months only. Allergies: [] No known allergies Medications: [] Topical medication for psoriasis which he is out of. Otherwise only psych meds as dictated above. Past Medical History: [] Psoriasis with active psoriasis lesions on his bilateral hands and forearms that are visible. Patient states he has it all over his body but has not gone to see his doctor for it. He denies any other medical illnesses and he denies any surgeries. He is little bit overweight. Family Psychiatric History: [] Mother is 55 and father is 52 years old. Mother and father both have depression and anxiety and he thinks they both take Celexa. His father attempted suicide 1 time. He has a paternal uncle and a cousin who completed suicide. No substance issues in the family. Personal/Social History: [] Patient was born in [place] and raised in [place]. He describes his childhood as okay. He was bullied in school a lot but said his parents were both loving and he had a lot of friends growing up. He denies any verbal, physical or sexual abuse ever. He has 2 brothers who live in the home with him as described in present illness. He graduated high school but no college. He has had jobs as a cook, concessions, grocery cashier another but the longest job he is ever had has been for 1 year. He had a serious boyfriend 1 time for 2 to 3 years and this ended in 2021 and he is single now. He is not sexually active lately. Legal History: [] No arrests. No DUIs. He does not have a rolloff driver's license because he is afraid of driving. Review of Systems: [] Review of systems is negative except as noted in present illness. Vital Signs: [] Vital signs are reviewed the nurses notes and updated and the patient is deemed medically able to participate in the IOP. Mental Status Examination: [] The patient is a 24-year-old male who is seen wearing glasses and has significant acne and a murrell. He has long hair and appears mildly disheveled. He has significant psoriasis lesions on his hands and forearms bilaterally. He has no psychomotor agitation or retardation and is ambulatory with a normal gait. Eye contact is fair but he closes his eyes at times when speaking. Speech is normal rate and rhythm and fluent with no pressure. Mood is depressed and anxious. Affect is mildly constricted. Thought process is goal-directed and organized. Thought content: There is evidence of passive thoughts of . There is no evidence of active suicidal ideation, homicidal ideation, hallucinations, delusions or symptoms of mima. Reality testing is intact. Intelligence is average at best. Judgment is intact. Insight is limited. Impulsivity is moderate. Diagnoses: [] 1. Major depressive disorder, recurrent, moderate 2. Generalized anxiety disorder 3. Rule out dependent traits 4. Primary support of work issues Plan: [] The patient will start the IOP and behavioral health at [facility] as the structure, support, education and group therapy will hopefully prevent worsening of the patient's symptoms which could require hospitalization. The risk, options, possible complications and side effects of the medications were discussed with the patient he understands accepts these. No medication changes were made today as the patient is not sure what dose of Trintellix he is on. He will find out the dose and let us know what it is. In addition he agrees to make an appointment for his psoriasis so he starts feeling better. He will continue to follow-up with his outpatient providers and eye doctor in 2 weeks.
--- NOTE | 2024-12-18 13:12 | BH.DR.ITP ---
Initial Treatment Plan Patient Information Visit Information: ADMISSION DATE: EXPECTED LOS: 4-6 weeks Problems/Symptoms Problem #1:: Depression Symptom:: Sadness, hopelessness, guilt, passive thoughts of Problem #2:: Anxiety Symptom:: Worry, rumination, avoidance
== END 2024-12-21 23:59 ==
LOC: BHIOP 08:00
PROVIDERS: Referring Provider Psychiatry & Neurology Psychiatry; Visit Provider Psychiatry & Neurology Psychiatry
DX: F33.1 Major depressive disorder, recurrent, moderate (principal); F41.1 Generalized anxiety disorder
CPT/HCPCS: S9480; 90853

== ENCOUNTER 2024-12-23 07:28 | Outpatient (RCR) | payer BC, MEDICAID, SELFPAY ==
[2024-12-22 00:25] VITALS: BP 143/94; PULSE 93
--- NOTE | 2024-12-23 09:05 | BH.SGPN.GN ---
Behaviors/Verbalizations/Mental Status: [] Eye contact is good. Motor activity is appropriate. Appearance is disheveled. Speech is Appropriate. Mood is depressed. Affect is congruent. Thoughts are linear and logical. No evidence of psychosis. Reviewed daily check in sheet and no reports of suicidal ideations or intent. Client Response/Progress/Benefit: [] Pt was an active participant in group discussions. Attentive. Pt reports significant mental health struggles in the past few days which mostly likely led to him cancelling IOP last week. ?Anxiety is rampant?. ?Thousand thoughts a minute?. ?I just can?t shut my brain down?. Increased irritability. Isolation and avoidance. Pt reports poor sleep hygiene. Stays up till 5am and sleeps till 6pm. When awake he watched TV or plays video games. ?Well it?s already 6pm not much I can do?. Impacting functionoing and mental health. Limited progress noted. Benefited from group support, encouragement, and feedback. Will continue in IOP to maintain safety, prevent decompensation, stabilize mood, and improve functioning. Narrative Note: []
--- NOTE | 2024-12-23 10:05 | BH.SGPN.GN ---
Behaviors/Verbalizations/Mental Status: []Pt alert and oriented, neatly dressed and groomed. Eye contact good. Motor activity appropriate. Speech within normal limits. Affect congruent, mood engaged. Thoughts linear, logical, no signs of hallucinations or delusions. Client Response/Progress/Benefit: [] Pt participated in the group discussions AEB providing input, nodding and taking notes. Attentive during psychoeducation Goal Setting. Participated during the discussion on common barriers. Pt worked with group to identify common barriers to goal setting and pt reported fear of commitment and not knowing where to start. Group also identified benefits of goals as sense of purpose, improved self-confidence, more motivation for other goals, sense of accomplishment, and improved mental health. Pt identified personal benefits to goal setting. Benefited from increased awareness of mental health benefits of goals as well as psychoeducation on SMART goal criteria. Will continue in IOP to prevent decompensation, gain routine and structure, and reduce negative self-talk. Narrative Note: []
--- NOTE | 2024-12-23 11:05 | BH.SGPN.GN ---
Behaviors/Verbalizations/Mental Status: [] Pt alert and oriented. Appearance is casual, hygiene is disheveled. Eye contact good. Motor activity appropriate. Speech within normal limits. Affect is anxious. Mood is congruent. Thoughts linear, logical, no signs of hallucinations or delusions. Client Response/Progress/Benefit: [] Pt was engaged during discussion and experiential activity. Completed the worksheet challenging them to develop a personal SMART goal. Pt chose a SMART goal to Do 2-3 small things to better sleep hygiene every day this week. Believes this goal will benefit them being through feeling more motivated and willing to be productive. Identified obstacles such as motivation and forgetting/losing track of time .Benefited from this group by developing a short-term SMART goal related to mental health. Will continue IOP to prevent decompensation, stabilize mood, and improve functioning Narrative Note: []
--- NOTE | 2024-12-25 09:05 | BH.SGPN.GN ---
Behaviors/Verbalizations/Mental Status: [] Pt alert and oriented, disheveled appearance. Eye contact good. Motor activity appropriate. Speech within normal limits. Affect congruent, mood calm. Thoughts linear, logical, no signs of hallucinations or delusions. Reviewed pt?s symptom tracker, no risk for suicidal ideation, plan, or intent 12/25/24. Client Response/Progress/Benefit: [] Pt was an active participant in group discussions. Attentive. Able to identify mental health wins including feeling like IOP is ?helping me put goals into action? and feeling hopeful that he can get better. Pt's stressor today is ?just minor stuff, I don?t really have any.? The group offered pt encouragement and emotional support which pt reported was helpful. Pt is feeling calm? this morning. Pt receptive to feedback from peers which pt reported was helpful. Progress noted. Benefited from group support, encouragement, and feedback. Will continue IOP tx to prevent decompensation, improve daily functioning, and increase self-care practices. ?? Narrative Note: []
--- NOTE | 2024-12-25 10:10 | BH.SGPN.GN ---
Behaviors/Verbalizations/Mental Status: []Eye contact is good. Motor activity is appropriate. Appearance is casual. Speech is Appropriate. Mood is depressed and anxious. Affect is congruent. Thoughts are linear and logical. No evidence of psychosis. Client Response/Progress/Benefit: []Pt was an active participant in group discussion. Engaged and attentive during psychoeducation and interactive discussion on coping skills, why people use unhealthy coping skills, how to replace unhealthy coping skills, and internal vs external coping skills. Attentive as peers came up with list of unhealthy coping skills. Pt reported personally, they tend to either lash out, numb with distraction, or avoid. Group discussed the effects of maladaptive coping skills on mental health. Benefited from increased understanding of unhealthy coping skills and the need for developing healthy internal and external coping skills. Actively participated during experiential group activity and was able to related this activity to group topic. Will continue in IOP to promote healthy thinking patterns, apply behavioral activation and healthy coping skills, and promote mood stability. Narrative Note: []
--- NOTE | 2024-12-25 11:15 | BH.SGPN.GN ---
Behaviors/Verbalizations/Mental Status: [] Pt alert and oriented, casual in appearance. Eye contact fair. Motor activity appropriate. Speech within normal limits. Affect congruent, mood anxious. Thoughts linear, logical, no signs of hallucinations or delusions. Client Response/Progress/Benefit: [] Pt did not engage in group discussions however was attentive AEB taking notes, and listening attentively to others. Group discussed the different categories of coping skills which included distraction, emotional release, grounding, self-love, and thought challenging. Pt participated in creating a coping skills ?menu? from the different categories of coping skills. Pt's coping skill menu included: yaz, walking, personal hygiene, and looking for evidence against. Appeared to benefit from increasing repertoire of healthy coping skills. Will continue IOP to promote healthy coping, improve view of self, and prevent decompensation.
--- NOTE | 2024-12-27 09:00 | BH.SGPN.GN ---
Behaviors/Verbalizations/Mental Status: [] Pt alert and oriented, neatly dressed and groomed. Eye contact good. Motor activity appropriate. Speech within normal limits. Affect congruent, mood euthymic and stressed Thoughts linear, logical, no signs of hallucinations or delusions. Reviewed pt?s symptom tracker, no risk for suicidal ideation, plan, or intent 12/27/24. Client Response/Progress/Benefit: []Pt was an active participant in group discussions. Attentive. Able to identify mental health wins including using self-talk this morning to manage anxiety and opposite action which helped pt not cancel. Pt's stressor today is ?I woke up late and almost didn?t make it to group.? Pt is feeling panicked but happy? this morning as pt had to lamar to get to group. Pt receptive to feedback from peers which pt reported was helpful. Progress noted. Benefited from group support, encouragement, and feedback. Will continue IOP tx to improve self-care practices, reduce negative thinking patterns, and increase social supports. Narrative Note: []
--- NOTE | 2024-12-27 10:00 | BH.SGPN.GN ---
Behaviors/Verbalizations/Mental Status: [] Eye contact is good. Motor activity is appropriate. Appearance is casual. Speech is Appropriate. Mood is anxious and depressed. Affect is congruent. Thoughts are linear and logical. No evidence of psychosis. Client Response/Progress/Benefit: [] Pt was engaged and participating throughout, providing input and taking notes. Attentive during psychoeducation on anxiety and cognitive triangle. Participated in an interactive discussion on defining anxiety and identifying cognitive and physiological symptoms of anxiety. The group discussed helpful vs harmful anxiety. Pt identified their physical/physiological signs of anxiety which includes:migraines, muscle tensions, and fidgeting Benefited from increased awareness and insight on anxiety and its impact. Will continue in IOP to prevent decompensation, maintain safety, and increase healthy coping. Narrative Note: []Behaviors/Verbalizations/Mental Status: [] Eye contact is good. Motor activity is appropriate. Appearance is casual. Speech is Appropriate. Mood is anxious and depressed. Affect is congruent. Thoughts are linear and logical. No evidence of psychosis. Client Response/Progress/Benefit: [] Pt was engaged and participating throughout, providing input and taking notes. Attentive during psychoeducation on anxiety and cognitive triangle. Participated in an interactive discussion on defining anxiety and identifying cognitive and physiological symptoms of anxiety. The group discussed helpful vs harmful anxiety. Pt identified their physical/physiological signs of anxiety which includes:migraines, muscle tensions, and fidgeting Benefited from increased awareness and insight on anxiety and its impact. Will continue in IOP to prevent decompensation, maintain safety, and increase healthy coping. Narrative Note: []
--- NOTE | 2024-12-27 11:00 | BH.SGPN.GN ---
Behaviors/Verbalizations/Mental Status: [] Eye contact is fair. Motor activity is appropriate. Appearance is disheveled. Speech is Appropriate. Mood is depressed and anxious. Affect is congruent. Thoughts are linear and logical. No evidence of psychosis. Client Response/Progress/Benefit: [] Pt was an active participant AEB pt providing input and listening attentively to peers. Attentive during psychoeducation on mindfulness coping skills, body-based coping skills, and mind-based coping skills and their impact on reducing anxiety and improving overall mental health wellness. Group was able to identify self-soothing and mind-based coping skills which included: 5-senses, meditation, deep breathing, TIPP, thought challenging, prayer, affirmation, brain games, weighted blanket, and progressive muscle relaxation. Pt also participated with peers in practicing progressive muscle relaxation during session. Appeared to benefit from increasing repertoire of anxiety reduction skills. Pt will continue IOP to prevent decompensation, maintain safety, increase healthy coping, and improve functioning. Narrative Note: []
--- NOTE | 2024-12-30 09:00 | BH.SGPN.GN ---
Behaviors/Verbalizations/Mental Status: [] ?Eye contact is good. Motor activity is appropriate. Appearance is casual. Speech is Appropriate. Mood is neutral, dysthymic . Affect is congruent. Thoughts are linear and logical. No evidence of psychosis. Reviewed daily check in sheet and no reports of suicidal ideations or intent. Client Response/Progress/Benefit: [] ?Pt was an active participant in group discussions. Attentive. Did well to identify 2 mental health wins including using opposite action to get here today despite struggling with ongoing sleep issues. Reports feeling hopeful he will be able to make progress in this area as he has been trying to adjust his nighttime routine. Additional win noted as being proud of his ability to maintain a personal boundary and make himself go to bed earlier than he usually does and read before bed rather than played video games. Stressor noted as anxiety and loneliness regarding his brother spending more time with his girlfriend and less time with pt. Reports wanting to speak with his brother about this but is worried he will get upset. Did well to review cost/benefits of communicating his feelings and receptive of group supportive feedback. Progress noted. Benefited from group support, encouragement, and feedback. Will continue in IOP to prevent decompensation, promote mood stability, and increase healthy coping consistency. Narrative Note: []
--- NOTE | 2024-12-30 10:10 | BH.SGPN.GN ---
Behaviors/Verbalizations/Mental Status: [] Eye contact is good. Motor activity is appropriate. Appearance is casual. Speech is Appropriate. Mood is anxious. Affect is congruent. Thoughts are linear and logical. No evidence of psychosis. Client Response/Progress/Benefit: [] Pt was an active participant in group discussions. Attentive during psychoeducation on the 4 communication styles (Passive, Passive-Aggressive, Aggressive, and Assertive) and the obstacles to effective communication. Contributed during interactive discussion on the benefits of communicating effectively. Worked well with peers to identify the benefits and disadvantages to the different communication styles. Pt believes that he is primarily passive. Benefited from increased understanding of communication styles and how these can impact effective communication. Will continue in IOP to increase healthy coping skills, challenge negative thoughts, and prevent decompensation.
--- NOTE | 2024-12-30 11:00 | BH.SGPN.GN ---
Behaviors/Verbalizations/Mental Status: []Pt alert and oriented, appeared well groomed, wearing the same clothes as last week. Eye contact good. Motor activity appropriate. Speech within normal limits. Affect congruent, mood content. Thoughts linear, logical, no signs of hallucinations or delusions. Client Response/Progress/Benefit: [] Pt responded well to session AEB Pt listening attentively to others and providing input during group discussion on the pay offs and costs of the different communication styles. Pt able to connect how current communication style impacts mental health. Connected with peers? comments about the importance of using assertive communication. Pt seemed to benefit from increasing awareness of healthy strategies to improve communication and worked with peers during the experiential activity to practice assertive communication. Pt reflected that he is beginning to be more assertive in IOP. Will continue IOP tx to promote self-care practices, increase distress tolerance, and improve daily functioning. Narrative Note: []
--- NOTE | 2025-01-01 09:00 | BH.SGPN.GN ---
Behaviors/Verbalizations/Mental Status: [] Client alert and oriented, casual appearance. Eye contact good. Motor activity appropriate. Speech within normal limits. Affect congruent, mood euthymic and positive. Thoughts linear, logical, no signs of hallucinations or delusions. Reviewed client's symptom tracker, no risk for suicidal ideation, plan, or intent. Client Response/Progress/Benefit: [] Client responded well to session AEB listening to others and sharing thoughts/feelings. Client reported mental positive as recognizing it is starting to be easier to show up to IOP each week. Client stated he is feeling more hopeful, having fun, learning a lot, and really happy he made the decision to come to IOP. Client noted his sleep cycle is starting to improve especially on the days that he comes IOP because it gives him a reason to get out of bed. Client noted current stressor as his brother not being around very often which leads client to feeling more lonely. Appeared to benefit from support from peers. Will continue IOP tx to increase utilization of healthy coping skills, challenge distortions, and prevent decompensation. Narrative Note: []
--- NOTE | 2025-01-01 11:05 | BH.SGPN.GN ---
Behaviors/Verbalizations/Mental Status: []Client alert and oriented, disheveled appearance. Eye contact good. Motor activity appropriate. Speech within normal limits. Affect congruent, mood content and euthymic. Thoughts linear, logical, no signs of hallucinations or delusions. Client Response/Progress/Benefit: [] Pt receptive of session, engaged throughout AEB Pt actively listening and contributing to discussion as well as taking notes.? Pt participated in the experiential activity and did well to communicate ideas with peers and manage emotions. Pt attentive as group processed how the emotions and perspective of the group impacted the activity. Pt was highly encouraging during the activity which helped peers. Group worked together to identify different coping skills to help manage pitfalls. Pt identified a pitfalls they struggle with as shutting down, catastrophizing, and not combatting negative self-talk. Pt plans to work on their pitfall by ?flipping the script and using opposite action Benefited from identifying personal pitfalls and strategies to overcome these pitfalls. Pt will continue IOP tx to promote mood stability, reduce negative thinking patterns, and improve daily self-care. Narrative Note: []
--- NOTE | 2025-01-01 14:23 | BH.MDN ---
Multi-Disciplinary Note Note 30-min Individual: Time Started:: 10:30 Date: 01/01/25 Purpose of session/treatment goals addressed:: Purpose session was to address goals 1 and 2 from [facility]. Eye Contact:: Fair Motor Activity:: Appropriate Appearance:: Casual (Grooming fair) Speech:: Appropriate Mood:: Anxious Affect:: Congruent Thoughts:: Linear, Logical and No evidence of hallucinations/delusions noted Staff Interventions:: thought challenging, motivational interviewing, CBT techniques, strengths perspective, goal setting and taught coping skills Client Response:: Client reported lately he feels like he has been doing better and has been working on his goal of improving his sleep routine. Client said there has been a few days in which she has stayed up super late and then would sleep then until 5 PM. Client noted however there has been progress with having more days in which she follows through with his plan to be in bed at a decent time and get up earlier compared to sleeping most of his day away. Client stated he has found it helpful to have [facility] to go to because he gives him reason to go to bed on time and get up early. Client noted he has been really enjoying his time in [facility] and is learning a lot of coping skills and strategies that will help him through his life with being able to manage stressors and mental health symptoms. In discussion about what else could help motivate him to get out of bed or give him purpose client noted getting a job would be the thing that would motivate him the most. Client stated he is starting to feel almost ready to take start looking at jobs and applying because he knows having a set schedule and making money would be motivating for him to improve his sleep routine and would reduce stress by bringing in income. Client noted he plans to start looking at jobs once he discharges from [facility]. Client stated his current stressor is not getting as much thing at time with his middle brother lately which has resulted in him feeling more sad and alone. Client stated him as brother have always been extremely close and used to hang out almost daily. Client noted since his brother has had a girlfriend he has been spending more time with the girlfriend and not as much time with client or client's family. Client stated he feels a little selfish thinking that his brother is not prioritizing him but does feel somewhat distant and sad when he does not have time with him. Therapist explored with client the option of bringing up to his brother the desire to schedule time together each week as a way of connection. Client recognizes he needs to work on accepting that his brother does have another relationship and that it is okay but agreed it would be helpful to openly talk to his brother about having more set times to hang out each week. In discussion about building additional supports client stated he has a hard time making new connections and often avoids doing so. Client stated there is a friend he could reach out to that he has not seen since September but is hesitant and worried that he will be seen as a bother. Client somewhat open to trying to reach out to this friend to set up a time to hang out but noted he we will have to think about it more. Therapist encouraged client to try to practice sitting with the uncomfortable because he would benefit more from the program if utilizes the skills while is in the program versus waiting until he leaves and has less support. Risks/Concerns:: Denies suicide ideation, plan, intention. Future oriented. Progress Toward Goals/Plan:: Progress noted with client reporting improved mood, improved sleep routine, and feeling hopeful. Client has been making progress with using alarms and reminders to help him get onto a healthier sleep routine. Client noted he feels more hopeful since attending IOP and is learning a lot from the program. Client stated he is starting to feel more ready to start looking for a job because he knows it will help his mood and give him purpose. Plan is for client to continue IOP to increase utilization of healthy coping skills, challenge distortions, and prevent decompensation. Time Stopped:: 11:00
--- NOTE | 2025-01-01 14:23 | BH.MDN ---
Multi-Disciplinary Note Note 30-min Individual: Time Started:: 10:30 Date: 01/01/25 Purpose of session/treatment goals addressed:: Purpose session was to address goals 1 and 2 from [facility]. Eye Contact:: Fair Motor Activity:: Appropriate Appearance:: Casual (Grooming fair) Speech:: Appropriate Mood:: Anxious Affect:: Congruent Thoughts:: Linear, Logical and No evidence of hallucinations/delusions noted Staff Interventions:: thought challenging, motivational interviewing, CBT techniques, strengths perspective, goal setting and taught coping skills Client Response:: Client reported lately he feels like he has been doing better and has been working on his goal of improving his sleep routine. Client said there has been a few days in which she has stayed up super late and then would sleep then until 5 PM. Client noted however there has been progress with having more days in which she follows through with his plan to be in bed at a decent time and get up earlier compared to sleeping most of his day away. Client stated he has found it helpful to have [facility] to go to because he gives him reason to go to bed on time and get up early. Client noted he has been really enjoying his time in [facility] and is learning a lot of coping skills and strategies that will help him through his life with being able to manage stressors and mental health symptoms. In discussion about what else could help motivate him to get out of bed or give him purpose client noted getting a job would be the thing that would motivate him the most. Client stated he is starting to feel almost ready to take start looking at jobs and applying because he knows having a set schedule and making money would be motivating for him to improve his sleep routine and would reduce stress by bringing in income. Client noted he plans to start looking at jobs once he discharges from [facility]. Client stated his current stressor is not getting as much thing at time with his middle brother lately which has resulted in him feeling more sad and alone. Client stated him as brother have always been extremely close and used to hang out almost daily. Client noted since his brother has had a girlfriend he has been spending more time with the girlfriend and not as much time with client or client's family. Client stated he feels a little selfish thinking that his brother is not prioritizing him but does feel somewhat distant and sad when he does not have time with him. Therapist explored with client the option of bringing up to his brother the desire to schedule time together each week as a way of connection. Client recognizes he needs to work on accepting that his brother does have another relationship and that it is okay but agreed it would be helpful to openly talk to his brother about having more set times to hang out each week. In discussion about building additional supports client stated he has a hard time making new connections and often avoids doing so. Client stated there is a friend he could reach out to that he has not seen since September but is hesitant and worried that he will be seen as a bother. Client somewhat open to trying to reach out to this friend to set up a time to hang out but noted he we will have to think about it more. Therapist encouraged client to try to practice sitting with the uncomfortable because he would benefit more from the program if utilizes the skills while is in the program versus waiting until he leaves and has less support. Risks/Concerns:: Denies suicide ideation, plan, intention. Future oriented. Progress Toward Goals/Plan:: Progress noted with client reporting improved mood, improved sleep routine, and feeling hopeful. Client has been making progress with using alarms and reminders to help him get onto a healthier sleep routine. Client noted he feels more hopeful since attending IOP and is learning a lot from the program. Client stated he is starting to feel more ready to start looking for a job because he knows it will help his mood and give him purpose. Plan is for client to continue IOP to increase utilization of healthy coping skills, challenge distortions, and prevent decompensation. Time Stopped:: 11:00
--- NOTE | 2025-01-03 09:05 | BH.SGPN.GN ---
Behaviors/Verbalizations/Mental Status: [] Eye contact is poor. Motor activity is appropriate. Appearance is disheveled. Speech is Appropriate. Mood is depressed. Affect is flat. Thoughts are linear and logical. No evidence of psychosis. Reviewed daily check in sheet and no reports of suicidal ideations or intent Client Response/Progress/Benefit: [] Pt participated when prompted. Distracted. ? So many stressors in the past two days?. He shared conflict and tension at home mainly involving his dad?s mental health. Pt is concerned and feels powerless to help. Uncertainty and ruminations. Worrying excessively. This has led to his mental health decompensation as well. Shred that he ? absorbs? others mental health issues and distress especially his family members. Benefited from group support, encouragement, and feedback. Regression noted, however he continues to work on his sleep routine which has shown improvement. Will continue in IOP to maintain safety, increase healthy coping, and improve functioning. Narrative Note: []
--- NOTE | 2025-01-03 10:15 | BH.SGPN.GN ---
Behaviors/Verbalizations/Mental Status: [] Pt alert and oriented, casually dressed and groomed. Eye contact good. Motor activity appropriate. Speech within normal limits. Affect congruent, mood euthymic. Thoughts linear, logical, no signs of hallucinations or delusions. Client Response/Progress/Benefit: [] Client receptive of session, actively engaged throughout AEB taking notes and providing input and examples to discussion. Appeared to connect with group topic of cognitive distortions and the impact of thought patterns on mental health, coping behaviors, and relationships. Client appeared to benefit from gaining insight on distorted thinking patterns and how this impacts overall mental health. Reports struggling with all or nothing thinking and disqualifying the positives. Will continue IOP tx to increase overall functioning, prevent decompensation, and improve mood stability. Narrative Note: []
--- NOTE | 2025-01-03 11:15 | BH.SGPN.GN ---
Behaviors/Verbalizations/Mental Status: [] Pt alert and oriented, casually dressed and groomed. Eye contact good. Motor activity appropriate. Speech within normal limits. Affect congruent, mood euthymic. Thoughts linear, logical, no signs of hallucinations or delusions. Client Response/Progress/Benefit: [] Client responded well to session AEB input and examples during group activity. Group discussed and practiced methods of reframing cognitive distortions. Client participated in identifying cognitive distortions when examples were provided. Client discussed in group the different strategies to overcome the distortions. Client identified learning that some of his unhelpful thoughts are actually multiple different distortions. Will continue tx to improve distress tolerance and behavior activation skill application and prevent decompensation. Narrative Note: []
--- NOTE | 2025-01-06 09:00 | BH.SGPN.GN ---
Behaviors/Verbalizations/Mental Status: [] Client alert and oriented, casual appearance. Eye contact good. Motor activity appropriate. Speech within normal limits. Affect congruent, mood irritable. Thoughts linear, logical, no signs of hallucinations or delusions. Reviewed client's symptom tracker, no risk for suicidal ideation, plan, or intent. Client Response/Progress/Benefit: [] Client responded well to session AEB listening to others and sharing thoughts/feelings. Client reported mental positive was being able to use opposite action and come to group today, despite low motivation and a desire to sleep in instead. Reports reminding himself of the benefits of doing so. Additional win noted as catching and successfully managing moments in which he was struggling with agitation over the weekend. Improved ability to regulated rather than take frustrations out on family. Expressed going on a walk which he had found to be helpful. Stressor identified as a lot of stuff but reported not wanting to go into detail. Appeared to benefit from support from peers and suggestions on stress management tactics. Will continue IOP tx to reinforce healthy coping skills, improve mood stability, and prevent decompensation. Narrative Note: []
--- NOTE | 2025-01-06 10:10 | BH.SGPN.GN ---
Behaviors/Verbalizations/Mental Status: [] Eye contact is good. Motor activity is appropriate. Appearance is unkempt. Speech is Appropriate. Mood is anxious and euthymic. Affect is congruent. Thoughts are linear and logical. No evidence of psychosis. Client Response/Progress/Benefit: [] Pt receptive to session AEB contributing to group discussion, as well as listening attentively to others, and taking notes. Worked with group to brainstorm the positive and negative aspects of stress on physical and mental health as well as the impact of distress on performance, relationships, and mental health. Pt shared top stressors to be: uncertain future, mental and physical health. Shared when feeling overwhelmed with stress they tend to isolate, freeze, and experience tension. Benefited from increased awareness of positive and negative stress as well as how stress impact individuals. Will continue in IOP to improve distress tolerance, improve view of self, and prevent decompensation. Narrative Note: [] Behaviors/Verbalizations/Mental Status: [] Eye contact is good. Motor activity is appropriate. Appearance is unkempt. Speech is Appropriate. Mood is anxious and euthymic. Affect is congruent. Thoughts are linear and logical. No evidence of psychosis. Client Response/Progress/Benefit: [] Pt receptive to session AEB contributing to group discussion, as well as listening attentively to others, and taking notes. Worked with group to brainstorm the positive and negative aspects of stress on physical and mental health as well as the impact of distress on performance, relationships, and mental health. Pt shared top stressors to be: uncertain future, mental and physical health. Shared when feeling overwhelmed with stress they tend to isolate, freeze, and experience tension. Benefited from increased awareness of positive and negative stress as well as how stress impact individuals. Will continue in IOP to improve distress tolerance, improve view of self, and prevent decompensation. Narrative Note: []
--- NOTE | 2025-01-06 11:10 | BH.SGPN.GN ---
Behaviors/Verbalizations/Mental Status: [] Eye contact is good. Motor activity is appropriate. Appearance is unkempt Speech is Appropriate. Mood is euthymic and anxious. Affect is congruent. Thoughts are linear and logical. No evidence of psychosis. Client Response/Progress/Benefit: [] Pt was an attentive participant in group discussions and actively engaged during experiential activity, doing well to regulate their emotions throughout the activity and work with peers. Attentive during psychoeducation on the 4 A's (Avoid, adapt, alter, accept) of coping with stress. Shared that they would benefit most adapting approach to lack of anger towards relationships by talking to person of how they are feeling. Was able to identify the connection between the experiential activity and utilization of stress management skills. Benefited from increased awareness of stress management strategies. Pt will continue IOP to increase consistent use of healthy coping skills, increase self care, and prevent decompensation. Narrative Note: []
--- NOTE | 2025-01-07 14:38 | BH.TPR ---
Treatment Plan Review Demographics Date of Admission:: 12/18/24 Date of Treatment Plan Review:: 01/07/25 Admitting Diagnoses:: 1. Major depressive disorder, recurrent, moderate 2. Generalized anxiety disorder 3. Rule out dependent traits 4. Primary support of work issues Diagnosis Code(s):: F33.1 Current Diagnoses:: 1. Major depressive disorder, recurrent, moderate 2. Generalized anxiety disorder 3. Rule out dependent traits 4. Primary support of work issues Diagnosis Code(s):: F33.1 Patient Status Patient's Response to Treatment:: Client consistently attending IOP sessions. Client does provide some feedback during group sessions and engages in individual counseling. client does struggle with follow through on homework outside treatment environment. Status of Current Problems and Symptoms: Ongoing problems. Client recently reporting increased agitation , increased anxiety, and increased depression. Client currently have interpersonal issues with his brother which has triggered increased mental health complaints. Client has limited support outside of his brother and this change in connection with his brother has been negatively impacting client's mental health. Client has been doing better with expressing feelings with therapist and hasn't had thoughts of wanting to hurt himself since starting IOP. Progress Problem #1: Problem Name:: Depression Status of Goals:: Obj 1 - not met. Client reporting 50% increase in depressive symptoms. Client is able to identify healthy coping skills, but struggles with applying skills outside treatment environment. Obj 2 - not met. Client showing improve awareness of negative thought patterns that reinforce depressed symptoms, however needs more practice with this skill. Team Recommendations:: Team recommends client continue current goals and objectives to allow for consistent utilization of healthy coping skills and strategies. Team encouraged current work with encouraging and helping client increase socialization outside of his brother's relationship. Problem #2: Problem Name:: Anxiety Status of Goals:: Obj 1 - not met. Client reporting significant increase in anxiety symptoms. Client is able to identify calming skills, but struggles with applying skills outside treatment environment. Obj 2 - not met. Client showing improve awareness of anxious triggers, but continues to engage in avoidance of anxiety provoking situations. Team Recommendations:: Team recommends client continue current goals and objectives to allow for consistent utilization of healthy coping skills and strategies. Team encouraged current work with encouraging and helping client increase socialization outside of his brother's relationship.
--- NOTE | 2025-01-08 09:00 | BH.SGPN.GN ---
Behaviors/Verbalizations/Mental Status: [] Client alert and oriented, casual appearance. Eye contact fair. Motor activity appropriate. Speech within normal limits. Affect congruent, mood anxious. Thoughts linear, logical, no signs of hallucinations or delusions. Reviewed client's symptom tracker, no risk for suicidal ideation, plan, or intent. Client Response/Progress/Benefit: [] Client responded well to session AEB listening to others and sharing thoughts/feelings. Client reported mental positive as showing up to IOP today despite feeling tired and not wanting to be here. Client reported mental positive as not feeling as angry as he was on Monday about the situation with his brother. Client noted being able to take a walk was helpful to his mood on Monday. Client noted current stressor as feeling worried about his brother's relationship. Client was vague on his worries and stated he did not want to talk about anything group. Client will meet with individual IOP therapist today. Appeared to benefit from support from peers. Will continue IOP tx to improve distress tolerance, challenge distortions, and prevent decompensation. Narrative Note: []
--- NOTE | 2025-01-08 11:00 | BH.SGPN.GN ---
Behaviors/Verbalizations/Mental Status: [] Eye contact is poor. Motor activity is appropriate. Appearance is disheveled. Speech is Appropriate. Mood is anxious and depressed. Affect is congruent. Thoughts are linear and logical. No evidence of psychosis. Client Response/Progress/Benefit: [] Pt responded well to session AEB completing the resilience worksheet provided, however minimal engagement. Attentive at times during psychoeducation however choose not to share his resilience traits with peers. Limited progress not as he was disengaged and appeared distracted for a majority of the session. Will continue IOP tx to maintain safety, prevent decompensation, improve functioning, and to increase healthy coping. Narrative Note: []
--- NOTE | 2025-01-08 15:06 | BH.MDN ---
Multi-Disciplinary Note Note 45-min Individual: Time Started:: 10:15 Date: 01/08/25 Purpose of session/treatment goals addressed:: Purpose of session was to address goals 1 and 2 from MTP. Eye Contact:: Fair Motor Activity:: Appropriate Appearance:: Disheveled Speech:: Appropriate Mood:: Anxious, Irritable and Other (sad) Affect:: Congruent Thoughts:: Linear, Logical and No evidence of hallucinations/delusions noted Staff Interventions:: thought challenging, motivational interviewing, CBT techniques, strengths perspective, reviewed DSM-5 and taught coping skills Client Response:: Client reported he is struggling today because he is feeling worried about his brother and still somewhat upset about the distance in his connection with his brother. Client stated he has been holding on to anger towards his brother over the weekend and until Monday of this week because client's brother spends most his time with his partner. Client stated he recognizes his brother will spend time with other people, but feels like his brother isn't putting effort into spending time with client. Client reported he held on to his anger over the weekend and spent more time isolating from his family. Client stated he didn't follow through with goals from last individual session of communicating with his brother desire to have more set time or days to spend time together. Client said he also did not follow through with the goal of reaching out to one of his friends as a way to increase her social support and reconnect with a friend. Client admitted over the weekend he mostly stewed about not getting time to spend his brother and did not find a healthy outlet for his frustration until Monday. Client stated on Monday he does still feeling angry but chose to go for a walk. Client stated he does think going for a walk and allowing himself to move past the anger was helpful. Client stated he today he is feeling more anxious because he heard his brothers partner be verbally berating last night. Client and therapist discussed options of what client can do to communicate concern to his brother. Also discussed what client can do today to help himself move past recent decompensation in mood and utilization of unhealthy coping skills like isolation. Client noted he recognizes prior to evening of last week he had been doing very well with mood management and not feeling depressed. Client agreed this is what often happens in work environments that he quickly reverts back to old unhealthy coping skills when faced with numerous stressors. Client stated today that he plans to open up to his parents about some of his feelings as a way to help release his thoughts and emotions instead of bottling. Client agreed it would be helpful for him to at least ask his brother at some point if they could hang out together so that client could talk to his brother about how he is feeling. Risks/Concerns:: Denies suicidal thoughts, plan, or intention to date. future oriented. Progress Toward Goals/Plan:: Decompensation noted for the last few days with client reporting increased agitation, increased isolation, and shutting down. Client has been able to recognize his use of unhealthy coping skills and is starting to break the cycle of continuing to stay stuck. Client and therapist reviewed what could have been some things client did to handle the recent stressors he has been faced with. Client having limited support outside his brother seems to be a barrier to treatment progress. Client has been encouraged to rebuild relationships he is had in the past but his anxiety has kept him from reaching out. Plan is for client to continue IOP to increase social support, challenge negative thought patterns, and prevent decompensation. Time Stopped:: 10:55
--- NOTE | 2025-01-10 09:00 | BH.SGPN.GN ---
Behaviors/Verbalizations/Mental Status: []Pt alert and oriented, disheveled appearance. Eye contact fair. Motor activity appropriate. Speech within normal limits. Affect congruent, mood neutral. Thoughts linear, logical, no signs of hallucinations or delusions. Reviewed pt?s symptom tracker, no risk for suicidal ideation, plan, or intent 01/10/25. Client Response/Progress/Benefit: []Pt was an active participant in group discussions. Attentive. Able to identify mental health wins including seeing his new psychiatrist yesterday and ?my biggest stressor is no longer around.? Pt stated his brother and his partner are not home right now and pt feels ?like I need a break from them.? Pt's stressor today is ?the ongoing stuff with my brother, but nothing else major.? The group offered pt encouragement and emotional support which pt reported was helpful. Pt is feeling neutral? this morning. Pt receptive to feedback from peers which pt reported was helpful. Progress noted. Benefited from group support, encouragement, and feedback. Will continue IOP tx to increase distress tolerance skills, increase self-awareness, and reduce isolation. ? Narrative Note: []
--- NOTE | 2025-01-10 11:15 | BH.SGPN.GN ---
Behaviors/Verbalizations/Mental Status: [] Client alert and oriented, casually dressed and groomed. Eye contact good. Motor activity appropriate. Speech within normal limits. Affect congruent, mood anxious. Thoughts linear, logical, no signs of hallucinations or delusions. Client Response/Progress/Benefit: [] Pt engaged in session AEB client listening attentively to peers and providing input. Attentive and contributed to discussion as group worked on identifying thought patterns and behaviors that negatively effect self-confidence. Pt identified behaviors that effect their confidence as: self-judgement/negative self-talk and isolation. Engaged in confidence building activity and worked with the group to identify strategies for improving self-confidence. Pt identified plans to begin positive self-talk as a means of improving own self-confidence. Benefited from increased education on self-confidence building skills. Pt will continue IOP tx to increase self-confidence, improve emotional regulation skills, and prevent decompensation. Narrative Note: []
--- NOTE | 2025-01-13 09:00 | BH.SGPN.GN ---
Behaviors/Verbalizations/Mental Status: [] Client alert and oriented, casual appearance. Eye contact fair. Motor activity appropriate. Speech within normal limits. Affect congruent, mood euthymic and anxious. Thoughts linear, logical, no signs of hallucinations or delusions. Reviewed client's symptom tracker, no risk for suicidal ideation, plan, or intent. Client Response/Progress/Benefit: [] Client responded well to session AEB listening to others and sharing thoughts/feelings. Client reported mental positive as starting to ask himself what is in my control when it comes to stressors that he recognizes he does not have any control over. Client reported additional mental positives as showing up to IOP today and improving his sleep schedule. Client noted current stressor as feeling like he is living at loud environment because of having lots of thoughts and worries connected to various changes and stressors within his family. Appeared to benefit from support from peers. Will continue IOP tx to increase utilization of healthy coping skills, challenge distortions, and prevent decompensation. Narrative Note: []
--- NOTE | 2025-01-13 10:10 | BH.SGPN.GN ---
Behaviors/Verbalizations/Mental Status: [] Eye contact is good. Motor activity is appropriate. Appearance is disheveled. Speech is Appropriate. Mood is anxious. Affect is congruent. Thoughts are linear and logical. No evidence of psychosis. Reviewed daily check in sheet and no reports of suicidal ideations or intent. Client Response/Progress/Benefit: [] Client responded well to session, contributing to discussion and engaged during the activity. Attentive during discussion on the quote and psychoeducation. Group identified the benefits of change as well as common emotions associated with change. Group choose five emotions associated with change (lonely, exhausted, confident, fearful,and overwhelmed) and discussed how these emotions can be both positive (motivate one to change) and also be an obstacle to change. Benefited from increased awareness and understanding of emotions, benefits, and barriers related to change. Will continue IOP tx to prevent decompensation, increase healthy coping, and improve functioning.
--- NOTE | 2025-01-13 11:10 | BH.SGPN.GN ---
Behaviors/Verbalizations/Mental Status: []Client alert and oriented, casually dressed and groomed. Eye contact good. Motor activity appropriate. Speech within normal limits. Affect congruent, mood euthymic. Thoughts linear, logical, no signs of hallucinations or delusions. Client Response/Progress/Benefit: [] Pt responded well to session, attentive. Did well to process activity and work with group to relate the strategies used to overcome barriers in the activity to managing change in own life. Pt identified a change would like to make is using more mental health skills I?ve been learning. Pt stated currently in preparation. Reported he is aware of many skills, but he has yet to be ?super consistent with implementing these.? Appeared to benefit from identifying a small goal to work towards. Pt will continue IOP tx to promote use of healthy coping skills, increase distress tolerance skills, and increase independence. Narrative Note: []
--- NOTE | 2025-01-15 10:10 | BH.SGPN.GN ---
Behaviors/Verbalizations/Mental Status: [] Eye contact is fair. Motor activity is appropriate. Appearance is casual. Speech is Appropriate. Mood is anxious and depressed. Affect is congruent. Thoughts are linear and logical. No evidence of psychosis. Client Response/Progress/Benefit: [] Pt engaged in session AEB listening attentively to others and providing input throughout. Pt engaged in activity, able to connect how it can be uncomfortable and difficult to practice acceptance when situations are out of one?s own control. Identified he is struggling to accept the actions of a specfic person, which makes him feel overwhelmed. Worked with peer group to define acceptance and identify the benefits that acceptance can bring. Benefits included; reduce stuckness, reduced stress, helps one to focus on situations we can change, and decreased negative self-talk. Seemed to benefit from increased awareness of the meaning as well as the importance of acceptance. Will continue in IOP to prevent decompensation, increase healthy coping, and improve distress tolerance.
--- NOTE | 2025-01-15 11:15 | BH.SGPN.GN ---
Behaviors/Verbalizations/Mental Status: []Pt alert and oriented, casually dressed and groomed. Eye contact good. Motor activity appropriate. Speech within normal limits. Affect congruent, mood anxious and depressed. Thoughts linear, logical, no signs of hallucinations or delusions. Client Response/Progress/Benefit: [] Pt responded well to session AEB taking notes and contributing to discussion throughout. Pt engaged as group continued discussion on acceptance and the mental health benefits of practicing acceptance. Pt and peers identified what makes acceptance challenging and pt completed a self-reflection exercise on what is hard to accept in pt's life. Pt identified something that is currently hard to accept as other's behaviors. Client stated by not accepting this it leads to uncomfortable thoughts, mood instability, and feeling out of control. Group identified strategies to increase acceptance. Pt noted wanting to work on use of dialects as a strategy for improving acceptance in this area. Pt appeared to benefit from gaining insight and learning strategies to increase acceptance. Pt will continue IOP tx to improve insight, increase mood stability, and prevent decompensation. Narrative Note: []
--- NOTE | 2025-01-15 14:31 | BH.MDN_ITS ---
Multi-Disciplinary Note Note 45-min Individual: Time Started:: 09:15 Date: 01/15/25 Purpose of session/treatment goals addressed:: Purpose of session was to address goals 1 and 2 from MTP. Eye Contact:: Fair Motor Activity:: Restless Appearance:: Casual Speech:: Appropriate Mood:: Anxious Affect:: Congruent Thoughts:: Logical, Racing and Other (scattered) Staff Interventions:: thought challenging, CBT techniques, strengths perspective, goal setting, taught coping skills (ANTWON) and other (problem solving) Client Response:: Client shared today he is feeling scattered because he feels like he is a lot going on. Client stated because he feels scattered he is having a hard time communicating why he feels so anxious and off. Client admitted he is continuing to struggle with his distant relationship with his brother. Client stated he did not follow through with goals discussed from last individual session of trying to talk to his brother about how he is feeling. Client stated there was not any opportunity to talk to his brother because his brother's partner is always around. Client stated he has been internally agitated with his brother and his brothers partner but has not shown that frustration towards others. Client admitted if he continues to hold onto this anger without healthy outlet with could result in an outburst. Client worked with therapist to try to organize what his options are in regards to addressing current problem of lack of one-on-one time with his brother. Client identified 3 options on what he could do to address the problem he is experiencing. Client noted currently he is trying to resolve this problem by distracting himself but recognizes it does not work because once his distraction item is complete he starts to feel agitated again. Client stated he knows on the better solutions w ould be to directly address client's thoughts and feelings with his brother but expressed worried that if his brother will become mad at client or his brothers partner will become out of client. Therapist provided education about the dear man and a personal skill in which client can utilize this to help organize his thoughts. Therapist attempted to complete this worksheet in the session to help client organize his thoughts more effectively. In the middle of the worksheet client stated he did not think he could do it because he was feeling too anxious. Client recognizes his anxiety is keeping him from utilizing skills and strategies that are discussed in therapy but is unsure if he is ready to sit with the uncomfortable and face some of these anxious situations. Therapist provided the demand worksheet to client and encouraged him to reflect further on what he wants to do. Client and therapist discussed the other option would be to for client to focus on changing his environment and reconnecting with a previous friend. Risks/Concerns:: Client reported denies suicide ideation, plan, intention. Future oriented. Progress Toward Goals/Plan:: Progress limited. Client continued to struggle with application of skills outside treatment environment as evidenced by client not completing goals he is set in individual counseling sessions. Client admits his anxiety and fear of what might happen has kept him from applying some of the strategies or communicating directly with others in his life. Plan is for client to continue IOP to decrease anxious avoidance, improve distress tolerance, and prevent decompensation. Time Stopped:: 10:00
--- NOTE | 2025-01-17 09:05 | BH.SGPN.GN ---
Behaviors/Verbalizations/Mental Status: [] Eye contact is poor. Motor activity is restless. Appearance is disheveled. Speech is Appropriate. Mood is anxious and irritable. Affect is full. Thoughts are linear and logical. No evidence of psychosis. Reviewed daily check in sheet and no reports of suicidal ideations or intent. Client Response/Progress/Benefit: [] Pt participated when prompted. Distracted. Daily symptom tracker notes 3/5 for anxiety and irritability. States ? all my stressors are at home?. Elaborated on the importance of getting out of his house. ? Just feels tense?. Receptive to feedback and was able to verbalize strategies to limit time spent in the house. When in the house he has also identified the need for goals, distraction, and purposeful activities. Benefited from group support, encouragement, and feedback. Will continue in IOP to maintain safety, prevent decompensation, and improve functioning. Narrative Note: []
--- NOTE | 2025-01-17 10:04 | PCM.BH.PN ---
Intake Vital Signs 12/18/24 11:38 12/22/24 00:25 Height 5 ft 9 in Weight: 210 lb 210 lb BP 143/94 H 143/94 H Pulse 93 93 BH Intake Allergies No Known Allergies Allergy (Verified 12/18/24 10:17) Medications ?Medication ?Instructions ?Recorded ?Confirmed ?Type clonidine HCl 0.1 mg tablet 0.1 mg PO BID PRN anxiety 12/18/24 12/18/24 History trazodone 50 mg tablet 50 - 100 mg PO QHS PRN PRN sleep 12/18/24 12/18/24 History vortioxetine 20 mg tablet 20 mg PO DAILY 12/18/24 12/18/24 History (Trintellix) HPI () History of Present Illness History provided by: patient HPI: Josr Woodward is a 24 year old male see today in follow up evaluation as part of IOP. Developmental History Developmental History: MERYL is the [ ORDER]. The pt was born and raised in [ ]. Education level completed [ ]. Pt describes his/her childhood as [ ]. Assessment & Plan () Assessment & Plan (1) Major depressive disorder, recurrent, moderate: (2) Generalized anxiety disorder: Visit Details Comments: Spent a total of [ ] minutes on the date of the service which included [ ].
--- NOTE | 2025-01-17 10:34 | PCM.BH.PN ---
Intake Vital Signs 12/18/24 11:38 12/22/24 00:25 01/17/25 10:06 01/17/25 10:41 Height 5 ft 9 in 5 ft 9 in 5 ft 9 in Weight: 210 lb 210 lb BP 143/94 H 143/94 H Pulse 93 93 Intake Visit Reasons: Depression Allergies No Known Allergies Allergy (Verified 12/18/24 10:17) Medications ?Medication ?Instructions ?Recorded ?Confirmed ?Type clonidine HCl 0.1 mg tablet 0.1 mg PO BID PRN anxiety 12/18/24 12/18/24 History trazodone 50 mg tablet 50 - 100 mg PO QHS PRN PRN sleep 12/18/24 12/18/24 History vortioxetine 20 mg tablet 20 mg PO DAILY 12/18/24 12/18/24 History (Trintellix) HPI () History of Present Illness History provided by: patient Chief complaint: Depression HPI: Jean Quintanilla is a 24 year old male seen today as follow up as part of his [facility] admission. Patient had been taking 20 mg of vortioxetine but has reduced to 10 mg about 2 months ago. Had felt that he had been doing better so didn't need such a high dose of medication. Overall is interested in keeping medication burden low. Feels like medication is decent. Feels like mood overall is stressed and anxious. Admits to having family stress related to his brother, family financial stress, and overall how his parents are doing. Father has a strong family history of suicide, so always is more concerned if dad is under stress. Patient not currently working. Is currently taking clonidine for anxiety and does find that it is beneficial. Also taking trazodone 50 mg at bedtime for sleep. Getting about 6-8 hours of sleep at night. Denies any SI HI or AVH. Review of systems () Constitutional Denies: fever(s), chills, change in weight or fatigue Eyes Denies: change in vision or blurry vision Ears, Nose, Mouth, Throat Denies: throat pain, neck pain or change in hearing Cardiovascular Denies: chest pain, palpitations or dyspnea Respiratory Denies: dyspnea, cough or wheezing Gastrointestinal Denies: abdominal pain, nausea, vomiting, diarrhea or constipation Genitourinary Denies: dysuria or urinary frequency Musculoskeletal Denies: back pain, neck pain, joint pain or muscle weakness Integumentary/Breast Denies: rash or new lesions Neurological Denies: headache(s), dizziness or confusion Endocrine Denies: fatigue or excessive sweating Hematologic/Lymphatic Denies: easy bruising or easy bleeding Allergic/Immunologic Denies: wheezing Exam Mental Status Exam- Psych () Appearance adequately groomed and no apparent distress Attitude other (Reserved) Activity/Motor Behavior MSE activity/motor behavior finding no adventitious movements Speech regular rate, regular volume and regular prosody Mood other (Okay) Affect constricted Thought Process linear, logical and coherent Thought Content no delusions and no hallucinations Suicidal Ideation none Homicidal Ideation none Attention intact Concentration intact Sensorium/Orientation awake, alert and oriented x3 Memory/Cognition other (appropriate for stated age) Insight good Judgement good Exam () Constitutional Documenting provider has reviewed patient's vital signs: yes Common normals: no acute distress, patient oriented x3 and alert General appearance: well developed Neuro Common normals: patient oriented x3 Sensorium/orientation: alert Gait (neuro): normal gait Assessment & Plan () Assessment & Plan (1) Major depressive disorder, recurrent, moderate: Plan: - Continue in IOP ? Continue taking Trintellix 10 mg every day ? Could consider titration to 20 mg if depressive symptoms not improve ? Can continue to take trazodone at bedtime (2) Generalized anxiety disorder: Plan: - Continue to use clonidine as needed for anxiety Charges/Coding Multi Select Codes Behavior Health Behavior Health EST Pt E/M: 72577 Est Pt Level IV
--- NOTE | 2025-01-17 11:10 | BH.SGPN.GN ---
Behaviors/Verbalizations/Mental Status: [] Eye contact is good. Motor activity is appropriate. Appearance is casual. Speech is Appropriate. Mood is dysthymic. Affect is congruent. Thoughts are linear and logical. No evidence of psychosis. Client Response/Progress/Benefit: [] Pt was an engaged participant in group discussion and activity. Worked with group to identify strategies to help overcome barriers and obstacles to desired reality. Group developed strategies for the common barriers. Identified personal barriers to desired reality and choose one obstacle to work on. Pt stated wanting to work on barrier of negative thinking by practicing looking for the positive. Pt seemed to benefit from increased repertoire of healthy coping skills/strategies to overcome common barriers to moving forward. Pt is to continue IOP increase functioning, challenge distortions, reduce isolation, and prevent decompensation. Narrative Note: []
--- NOTE | 2025-01-20 09:00 | BH.SGPN.GN ---
Behaviors/Verbalizations/Mental Status: [] Eye contact is good. Motor activity is appropriate. Appearance is casual. Speech is Appropriate. Mood is depressed and anxious. Affect is congruent. Thoughts are linear and logical. No evidence of psychosis. Reviewed daily check in sheet and pt denies any SI, plan, or intent as of this date. Client Response/Progress/Benefit: [] Pt participated when prompted. Attentive. Daily symptom tracker notes 2/5 for depression and anxiety as well as 3/5 for irritability. Mental health wins noted as going for a walk when recognizing his anger was building to a point of loss of control. Additional win noted as reaching out to his parents for support and to vent his frustrations. Shared less irritability as a result. Pt noted that an issue with his brother remains an ongoing stressor, and though he recognizes the situuation will persist if he does not address it, pt is reluctant to do so. Progress limited. Benefited from group support, encouragement, and feedback. Will continue in IOP to promote mood stability, improve healthy coping consistency, and prevent decompensation. Narrative Note: []
--- NOTE | 2025-01-20 10:05 | BH.SGPN.GN ---
Behaviors/Verbalizations/Mental Status: [] Eye contact is good. Motor activity is appropriate. Appearance is disheveled. Speech is Appropriate. Mood is depressed. Affect is congruent. Thoughts are linear and logical. No evidence of psychosis. Client Response/Progress/Benefit: [] Pt was an active participant during interactive group discussions. Attentive during psychoeducation on the six types of boundaries (physical, emotional, intellectual, sexual, time, and material) AEB note-taking and providing input. Along with peers contributed to interactive discussion on defining what a boundary is in mental health. Pt identified biggest obstacle for setting boundaries is lack of confidence . Pt along with peers identified the benefits to setting boundaries such as better relationships, increased time for self-care, and increased confidence, and feeling more heard. Group discussed the mental health benefits to establishing boundaries at work, school, and home. Pt benefited from increased awareness and insight on the importance/benefit to setting health boundaries. Will continue in IOP to maintain safety, increase healthy coping,prevent decompensation, and improve functioning. Narrative Note: []
--- NOTE | 2025-01-20 11:05 | BH.SGPN.GN ---
Behaviors/Verbalizations/Mental Status: []Pt alert and oriented, disheveled appearance. Eye contact good. Motor activity appropriate. Speech within normal limits. Affect congruent, mood euthymic. Thoughts linear, logical, no signs of hallucinations or delusions. Client Response/Progress/Benefit: [] Client responded well to session AEB listening attentively to peers, providing input, as well as taking notes throughout. Group discussed different styles of boundary setting. Participated in small group discussion brainstorming various strategies for improving healthy boundary setting. Pt took time to complete reflection on which skills would like to implement to improve boundaries. Pt reports plan to practice self-reflection and reminding himself that two things can be true. ?Seemed to benefit from increased awareness of how different boundary styles can impact mental health. Will continue IOP tx promote use of healthy coping skills, reduce isolation, and increase interpersonal effectiveness skills. Narrative Note: [] Behaviors/Verbalizations/Mental Status: []Pt alert and oriented, disheveled appearance. Eye contact good. Motor activity appropriate. Speech within normal limits. Affect congruent, mood euthymic. Thoughts linear, logical, no signs of hallucinations or delusions. Client Response/Progress/Benefit: [] Client responded well to session AEB listening attentively to peers, providing input, as well as taking notes throughout. Group discussed different styles of boundary setting. Participated in small group discussion brainstorming various strategies for improving healthy boundary setting. Pt took time to complete reflection on which skills would like to implement to improve boundaries. Pt reports plan to practice self-reflection and reminding himself that two things can be true. ?Seemed to benefit from increased awareness of how different boundary styles can impact mental health. Will continue IOP tx promote use of healthy coping skills, reduce isolation, and increase interpersonal effectiveness skills. Narrative Note: [] Behaviors/Verbalizations/Mental Status: []Pt alert and oriented, disheveled appearance. Eye contact good. Motor activity appropriate. Speech within normal limits. Affect congruent, mood euthymic. Thoughts linear, logical, no signs of hallucinations or delusions. Client Response/Progress/Benefit: [] Client responded well to session AEB listening attentively to peers, providing input, as well as taking notes throughout. Group discussed different styles of boundary setting. Participated in small group discussion brainstorming various strategies for improving healthy boundary setting. Pt took time to complete reflection on which skills would like to implement to improve boundaries. Pt reports plan to practice self-reflection and reminding himself that two things can be true. ?Seemed to benefit from increased awareness of how different boundary styles can impact mental health. Will continue IOP tx promote use of healthy coping skills, reduce isolation, and increase interpersonal effectiveness skills. Narrative Note: [] Behaviors/Verbalizations/Mental Status: []Pt alert and oriented, disheveled appearance. Eye contact good. Motor activity appropriate. Speech within normal limits. Affect congruent, mood euthymic. Thoughts linear, logical, no signs of hallucinations or delusions. Client Response/Progress/Benefit: [] Client responded well to session AEB listening attentively to peers, providing input, as well as taking notes throughout. Group discussed different styles of boundary setting. Participated in small group discussion brainstorming various strategies for improving healthy boundary setting. Pt took time to complete reflection on which skills would like to implement to improve boundaries. Pt reports plan to practice self-reflection and reminding himself that two things can be true. ?Seemed to benefit from increased awareness of how different boundary styles can impact mental health. Will continue IOP tx promote use of healthy coping skills, reduce isolation, and increase interpersonal effectiveness skills. Narrative Note: []
== END 2025-01-20 23:59 ==
LOC: BHIOP 07:28
PROVIDERS: Referring Provider Psychiatry & Neurology Psychiatry; Visit Provider Psychiatry & Neurology Psychiatry
DX: F33.1 Major depressive disorder, recurrent, moderate (principal); F41.1 Generalized anxiety disorder
CPT/HCPCS: S9480; 90832; 90834; 90853

== ENCOUNTER 2025-01-21 09:05 | Outpatient (RCR) | payer SELFPAY ==
--- NOTE | 2025-01-21 10:10 | BH.SGPN.GN ---
Behaviors/Verbalizations/Mental Status: []Pt alert and oriented, disheveled appearance. Eye contact good. Motor activity appropriate. Speech within normal limits. Affect congruent, mood content, agitated. Thoughts linear, logical, no signs of hallucinations or delusions. Client Response/Progress/Benefit: [] Pt an active participant in group discussions on defining conflict (internal/external) and possible benefits to conflict. Attentive during psychoeducation on conflict styles (avoidant, accommodating, competing, cooperative) and engaged during group discussion in which peers identified the benefits and consequences to each conflict style. Pt identified that he tends to be avoiding when it comes to conflict which then leads to more problems. Benefited from increased awareness of the impact of conflict styles in mental health. Will continue in IOP tx to increase application of healthy coping skills, improve daily functioning, and increase independence. Narrative Note: []
--- NOTE | 2025-01-29 09:00 | BH.SGPN.GN ---
Behaviors/Verbalizations/Mental Status: []Pt alert and oriented, neatly dressed and groomed. Eye contact fair. Motor activity restless. Speech within normal limits. Affect congruent, mood depressed and tense. Thoughts linear, logical, no signs of hallucinations or delusions. Reviewed pt?s symptom tracker, no risk for suicidal ideation, plan, or intent 01/29/25. Client Response/Progress/Benefit: []Pt was an active participant in group discussions. Attentive. Able to identify mental health wins including spending time with his mother and getting back to IOP after some issues with insurance. Pt's stressor today is ?there?s a lot going on at home right now.? The group offered pt encouragement and emotional support which pt reported was helpful. Pt is feeling tense.? this morning. Pt receptive to feedback from peers. Benefited from group support, encouragement, and feedback. Progress limited. Will continue IOP tx to promote use of healthy coping skills, reduce negative thinking patterns, and improve distress tolerance. Narrative Note: []
--- NOTE | 2025-01-29 10:15 | BH.SGPN.GN ---
Behaviors/Verbalizations/Mental Status: [] Client alert and oriented, casually dressed and groomed. Eye contact good. Motor activity appropriate. Speech within normal limits. Affect congruent, mood anxious and depressed. Thoughts linear, logical, no signs of hallucinations or delusions. Client Response/Progress/Benefit: [] Client responded well to session AEB contributing to discussion, taking notes, and listening attentively to others. Group discussed the benefits of managed anger and anger as a secondary emotion. Client participated in anger iceberg discussion. Group reported outward personal signs of anger as lashing out verbally, physical fights, destruction of property, self-harm, and self-sabotage. Group Identified underlying emotions that contribute to anger including being dismissed, rejection, assumptions, being lied too, and micromanaging. Appeared to benefit from increased knowledge of the underlying emotions that impact anger and increased self-awareness of the internal and external consequences of anger. Client will continue IOP program to increase emotional regulation skills and prevent decompensation.
--- NOTE | 2025-01-29 11:15 | BH.SGPN.GN ---
Behaviors/Verbalizations/Mental Status: [] client alert and oriented, causally dressed and fairly groomed. Eye contact fair. Motor activity appropriate. Speech within normal limits. Affect congruent, mood dysthymic. Thoughts linear, logical, no signs of hallucinations or delusions. Client Response/Progress/Benefit: [] Client was an engaged participant throughout group AEB client providing input throughout discussion. Client contributed to the continued discussion of how people express anger as well as the underlying emotions of anger. Client participated in group activity that highlighted strategies to cope with anger. Group brainstormed healthy coping skills to help prevent anger and cope with it in the moment which included: mindfulness, deep breathing, journaling, going outside, and music. Client stated something he learned from today's group is improved understanding of his personal anger cycle. Client appeared to benefit from brainstorming with the group potential strategies to manage anger in healthy ways. Recommended continued IOP to improve distress tolerance, challenge distortions, and prevent decompensation.
--- NOTE | 2025-01-31 09:05 | BH.SGPN.GN ---
Behaviors/Verbalizations/Mental Status: [] Eye contact is good. Motor activity is restless. Appearance is disheveled. Speech is Appropriate. Mood is depressed. Affect is congruent. Thoughts are linear and logical. No evidence of psychosis. Reviewed daily check in sheet and no reports of suicidal ideations or intent. Client Response/Progress/Benefit: [] Pt participated when prompted. Attentive. Daily symptom tracker notes /5 for anxiety and 2/5 for depression/irritability. Shared with the group that he left IOP yesterday b/c???I wasn?t in a good headspace?. According to pt there is significant ? Stress at home? which often results in mental health decompensation with pt. As he processes the week he is able to identify resilience in certain areas stating ? I was able to get through things? however he is unable to give himself credit as he has a belief that if he does this madi trigger something bad to happen. Group helped with reframing and also praised pt for his resiliency which was beneficial. Progress noted. Will continue in IOP to maintain safety, prevent decompensation, increase healthy coping, and improve functioning. Narrative Note: []
--- NOTE | 2025-01-31 11:15 | BH.SGPN.GN ---
Behaviors/Verbalizations/Mental Status: []Pt alert and oriented, casually dressed and groomed. Eye contact good. Motor activity appropriate. Speech within normal limits. Affect congruent, mood content. Thoughts linear, logical, no signs of hallucinations or delusions. Client Response/Progress/Benefit: [] Pt responded well to session, engaged and contributing. Pt discussed with group things that contribute to mental wellness life. With peers, pt discussed things that would sabotage one's mental health wellness. Pt identified things pt personally does to sabotage as avoidance and poor boundaries. Pt attentive during psychoeducation on ways to reduce self-sabotage and pt selected using dialectical thinking to help maintain boundaries?as the skill that could help pt reduce self-sabotaging behaviors. Pt appeared to benefit from learning skills and gaining awareness of self-sabotaging behaviors. Pt will continue IOP tx to prevent decompensation, improve distress tolerance skills, and combat negative self-talk. Narrative Note: []
--- NOTE | 2025-01-31 15:00 | BH.SGPN.GN ---
Behaviors/Verbalizations/Mental Status: [] Pt alert and oriented, disheveled. Eye contact fair. Motor activity appropriate. Speech within normal limits. Mood: depressed. Affect: congruent. Thoughts linear, logical, no signs of hallucinations or delusions. Client Response/Progress/Benefit: [] Pt was an active participate during group discussions. Attentive during psychoeducation on self-sabotage and its impact on mental health. Worked with peers to identify reasons individuals perform self-sabotage behaviors (fear of rejection, learned behavior, coping mechanism, fear of failure, insecurity, and feeling like they are not worthy). Pt identified the forms of self-sabotage that impact their mental health the most which included (isolation, perfectionism, lashing out, procrastination, poor communication and people-pleasing). Seemed to benefit from gaining awareness about the self-sabotage. Pt to continue IOP tx to prevent decompensation, maintain safety, and improve functioning. Narrative Note: []
--- NOTE | 2025-02-03 09:00 | BH.SGPN.GN ---
Behaviors/Verbalizations/Mental Status: [] Pt alert and oriented, neatly dressed and groomed-reported he showered. Eye contact poor. Motor activity appropriate. Speech within normal limits. Affect flat, mood irritable. Thoughts linear, logical, no signs of hallucinations or delusions. Reviewed pt?s symptom tracker, no risk for suicidal ideation, plan, or intent 02/03/25. Client Response/Progress/Benefit: []Pt was an active participant in group discussions. Attentive. Able to identify mental health wins including getting to IOP even though he is not in a good place and spending time outside of the house. Pt's stressor today is ?my home situation is terrible and I?m so angry it?s eating me from the inside.? The group offered pt encouragement and emotional support which pt reported was helpful. Pt is feeling trapped this morning. Pt receptive to feedback from peers. Progress noted. Benefited from group support, encouragement, and feedback. Will continue IOP tx to prevent decompensation, improve daily functioning, and increase distress tolerance skills. Narrative Note: []
--- NOTE | 2025-02-03 10:00 | BH.SGPN.GN ---
Behaviors/Verbalizations/Mental Status: [] Client alert and oriented, disheveled. Eye contact fair. Motor activity appropriate. Speech within normal limits. Mood is dysthymic. Affect is congruent. Thoughts linear, logical, no signs of hallucinations or delusions. Client Response/Progress/Benefit: [] Pt responded well to session AEB sharing and listening attentively to others. Group provided examples of types of support (professional, pets, hobbies, community, spouse, joaquín, etc) as well as benefits of having social support, including: validation, get perspective, and accountability. Pt also participated in group discussion regarding the barriers to accessing support identifying examples to include: negative thinking, lack of communication, and lack of trust. Pt participated in experiential activity illustrating the impact communication, boundaries, and patience play in creating healthy support systems. Pt appeared to benefit from increased knowledge of the benefits of social support and greater self-awareness. Pt to continue IOP to prevent decompensation, increase healthy coping, and improve functioning Narrative Note: []
--- NOTE | 2025-02-03 11:05 | BH.SGPN.GN ---
Behaviors/Verbalizations/Mental Status: []Client alert and oriented, casually dressed and groomed. Eye contact good. Motor activity appropriate. Speech within normal limits. Affect congruent, mood euthymic. Thoughts linear, logical, no signs of hallucinations or delusions. Client Response/Progress/Benefit: [] Pt participated throughout AEB contributing to discussion, providing examples, and taking notes. Pt provided input during discussion on the types of support our supports can provide. Pt able to identify current support system and barriers that get in the way of using supports. Pt reported after identifying what type of supports pt receives, pt gained awareness that pt could benefit from more social support by putting more effort into reaching out to his friends and can start with a text to reach out. Pt seemed to benefit from identifying the type of support pt needs to work on improving. Pt recommended to continue IOP tx to promote increase positive self-talk, improve communication, and prevent decompensation. Narrative Note: []
--- NOTE | 2025-02-03 15:01 | BH.COMM ---
Communication Note Communication with Client Communication Note: Therapist checked in with pt as pt's IOP therapist was not here today. Pt was displaying signs of significant distress during process group and expressed feeling so overwhelmed and stressed it's eating me from the inside. Pt reported he is not fully better but he is doing better now and he expressed gratitude multiple times that this therapist was willing to check-in with him. Pt denies any active SI, plan, or intent. Pt stated when he gets overwhelmed he wants to escape, but not kill myself. Pt will meet with his usual IOP therapist later this week.
--- NOTE | 2025-02-04 09:02 | BH.SGPN.GN ---
Behaviors/Verbalizations/Mental Status: [] Client alert and oriented, disheveled appearance. Eye contact fair. Motor activity appropriate. Speech within normal limits. Affect constricted, mood anxious. Thoughts linear, logical, no signs of hallucinations or delusions. Reviewed client's symptom tracker, no risk for suicidal ideation, plan, or intent. Client Response/Progress/Benefit: [] Client responded well to session AEB listening to others and sharing thoughts/feelings. Client reported mental positive as showing up to IOP despite being faced with different psychosocial stressors. Client reported additional month of positive as using healthy distraction with the way to manage current stressors. Client noted current stressor as trying to figure out his insurance and the added stress is increasing his physical pain and adding to exhaustion. Client noted feeling overwhelmed. Appeared to benefit from support from peers. Will continue IOP tx to improve distress tolerance, challenge distortions, and prevent decompensation. Narrative Note: []
--- NOTE | 2025-02-04 10:10 | BH.SGPN.GN ---
Behaviors/Verbalizations/Mental Status: []Pt alert and oriented, disheveled appearance. Eye contact good. Motor activity appropriate. Speech within normal limits. Mood is depressed. Affect is congruent. Thoughts linear, logical, no signs of hallucinations or delusions. Client Response/Progress/Benefit: [] Pt was an active?participant in group discussions and experiential activity. Worked with peers to identify benefits of healthy relationships which included; support, shared experiences, laughter, understanding, and perspective challenge. Group identified factors that lead to unhealthy relationships which included; not being a ?good space mentally,? trauma-bonding, poor communication, and manipulation/toxic behaviors. Pt reported that any type of aggressive communication can lead to unhealthy relationships. Benefited from increased insight and awareness of benefits of healthy relationships and factors that contribute to unhealthy relationships. Will continue IOP to improve mood stability, increase application of healthy coping skills outside of IOP, and reduce negative thinking patterns. ? Narrative Note: []
--- NOTE | 2025-02-04 14:20 | BH.MDN_ITS ---
Multi-Disciplinary Note Note 60-min Individual: Time Started:: 11:10 Date: 02/04/25 Purpose of session/treatment goals addressed:: Purpose of session was to address goals 1 and 2 from MTP. Eye Contact:: Fair Motor Activity:: Appropriate Appearance:: Casual Speech:: Appropriate Mood:: Anxious Affect:: Congruent Thoughts:: Racing, Circular and No evidence of hallucinations/delusions noted Staff Interventions:: thought challenging, CBT techniques, rapport building, strengths perspective, taught coping skills and other (created response plan for difficult moments) Client Response:: Client reported he is feeling overwhelmed with minor and major stressors currently. Client stated he has been over relying on distraction as a way to cope and deal with his emotions and stressors in his life. Client identified his big stressors to be challenges with navigating new insurance and frustration toward his brothers partner moving in with their family. Client stated has been staying in his little brother's bedroom because he becomes easily agitated when he hears his brother's partner because client noted they are loud. Client admitted he has been isolating in his brother's bedroom most of the time because he tries to avoid being around his brother's partner. Client recognizes continuing to stay isolated when home will continue to negatively impact his mood. Client worked with therapist to develop a response plan for how to coexist with his brother's partner. Client agreeable to work on decreasing how much time he is isolated in his bedroom. Client stated he could also spend more time outdoors if he needs space from his brother's partner. Therapist encouraged client to have conversation with his brother about how he is feeling about the distance in their relationship since the brother's partner has moved in. Client stated he is worried that it will go bad and hurt the relationship further which is why he hasn't brought it up. However, client noted by avoiding expressing himself he is becoming more angry. Risks/Concerns:: Denies suicidal thoughts, plan, or intention to date. future oriented. Progress Toward Goals/Plan:: Decompensation noted with client reporting increased isolation, irritability and depression. Client has been trying to cope with stressor of changing insurance and his brother's partner moving in with their family. Due to insurance changes he has not been able to fill his medication that helps with sleep. Client stated he has been struggling with getting back to a healthy sleep schedule due to this. Client plans to work with his shelter case manager later this week to try and get his medications. Plan is for client to continue IOP to increase consistent use of healthy coping skills, challenge distortions, and prevent decompensation. Time Stopped:: 12:15
--- NOTE | 2025-02-07 07:58 | PCM.BH.PN ---
Intake Vital Signs 01/17/25 10:41 02/07/25 07:58 Height 5 ft 9 in 5 ft 9 in Intake Visit Reasons: anxiety Allergies No Known Allergies Allergy (Verified 12/18/24 10:17) Medications ?Medication ?Instructions ?Recorded ?Confirmed ?Type vortioxetine 20 mg tablet 20 mg PO DAILY 12/18/24 12/18/24 History (Trintellix) clonidine HCl 0.1 mg tablet 0.1 mg PO BID PRN anxiety 30 days 02/07/25 Rx #60 tabs hydroxyzine HCl 25 mg tablet 25 mg PO BID PRN anxiety #60 tabs 02/07/25 Rx trazodone 50 mg tablet 50 - 100 mg (1 - 2 x 50 mg) PO QHS 02/07/25 Rx PRN PRN sleep 30 days #60 tabs HPI () History of Present Illness History provided by: patient Chief complaint: Depression HPI: Jean Quintanilla is a 25 year old male seen today as follow up as part of his [facility] admission. Patient reports that he has been having insurance issues so took a week off of [facility]. Has found that the past few weeks have been really rough. Also stopped seeing case management during the past week. Feeeling more stressed, anxious and angry. Brother's partner just moved in to home which has added additional stress at home. He has been having hard time adjusting to this. Dad also started a new job as a towel stretcher so he has been worried about him, largely from a physical perspective. Still worries about his mother overall and her wellbeing. Has continued taking trintellix but ran out of clonidine and trazodone. Continues to worry about his childhood pet, his cat, which adds to stress. Has had fleeting thoughts of , but no intent or plan of suicide. Review of systems () Constitutional Denies: fever(s), chills, change in weight or fatigue Eyes Denies: change in vision or blurry vision Ears, Nose, Mouth, Throat Denies: throat pain, neck pain or change in hearing Cardiovascular Denies: chest pain, palpitations or dyspnea Respiratory Denies: dyspnea, cough or wheezing Gastrointestinal Denies: abdominal pain, nausea, vomiting, diarrhea or constipation Genitourinary Denies: dysuria or urinary frequency Musculoskeletal Denies: back pain, neck pain, joint pain or muscle weakness Integumentary/Breast Denies: rash or new lesions Neurological Denies: headache(s), dizziness or confusion Endocrine Denies: fatigue or excessive sweating Hematologic/Lymphatic Denies: easy bruising or easy bleeding Allergic/Immunologic Denies: wheezing Exam Mental Status Exam- Psych () Appearance no apparent distress and unkempt Attitude other (Reserved) Activity/Motor Behavior MSE activity/motor behavior finding no adventitious movements Speech regular rate, regular volume and regular prosody Mood other (really rough) Affect constricted Thought Process linear, logical and coherent Thought Content no delusions and no hallucinations Suicidal Ideation none Homicidal Ideation none Attention intact Concentration intact Sensorium/Orientation awake, alert and oriented x3 Memory/Cognition other (appropriate for stated age) Insight fair Judgement good Assessment & Plan () Assessment & Plan (1) Major depressive disorder, recurrent, moderate: Plan: - Continue in IOP ? Continue taking Trintellix 10 mg every day ? restart clonidine PRN - will add hydroxyzine 25 mg BID PRN - Take all medications as prescribed.? Please avoid the use of alcohol or drugs.? Attend all outpatient appointments as scheduled.? See your primary care provider if you develop any medical problems.? If you develop thoughts of harming yourself or others please call 911, present to the nearest emergency room, or call the [place] Crisis line at . Resources are also available through the National Suicide Prevention Lifeline at . (2) Generalized anxiety disorder: Plan: - Continue to use clonidine as needed for anxiety - see above regarding hydroxyzine Medications: New hydroxyzine HCl 25 mg PO BID PRN 60 tabs 2RF anxiety F41.1 - Generalized anxiety disorder Changed From clonidine HCl 0.1 mg PO BID PRN anxiety To clonidine HCl 0.1 mg PO BID 30 days PRN 60 tabs 2RF anxiety From trazodone 50 - 100 mg PO QHS PRN PRN sleep To trazodone 50 - 100 mg (1 - 2 x 50 mg) PO QHS PRN 30 days PRN 60 tabs 2RF sleep Charges/Coding Multi Select Codes Behavior Health Behavior Health EST Pt E/M: 08964 Est Pt Level IV
--- NOTE | 2025-02-07 09:05 | BH.SGPN.GN ---
Behaviors/Verbalizations/Mental Status: [] Eye contact is good. Motor activity is disheveled. Appearance is casual. Speech is Appropriate. Mood is depressed. Affect is congruent. Thoughts are linear and logical. No evidence of psychosis. Reviewed daily check in sheet and no reports of suicidal ideations or intent. Client Response/Progress/Benefit: [] Pt participated when prompted. Attentive. Daily symptom tracker notes 2/5 for depression and anxiety. After recent stressors pt admits to decompensation however from his perspective he has maintained his course and feels that he is beginning to stabilize. Proud of himself for not spiraling further down. Intervention, skills, and maintaining support have helped him navigate. Increased confidence in himself. Reports decreased fear, hopelessness, and anxiety. Reached out to his director of casework services and is currently working on future goals such as employment. Progress noted. Benefited from group support, encouragement, and feedback. Will continue in IOP to maintain safety, prevent decompensation, and increase healthy coping Narrative Note: []
--- NOTE | 2025-02-07 10:15 | BH.SGPN.GN ---
Behaviors/Verbalizations/Mental Status: []Pt alert and oriented, neatly dressed and groomed. Eye contact good. Motor activity appropriate. Speech within normal limits. Affect congruent, mood euthymic. Thoughts linear, logical, no signs of hallucinations or delusions. Client Response/Progress/Benefit: [] Pt participated during small group discussions. Attentive during psychoeducation about defense mechanisms. Showed engagement during small group discussions and helped group identify which defense mechanisms were maladaptive, adaptive, or ?somewhere in the solares.? Pt worked with small group on identifying how each defense mechanism can impact mental health and gave examples. Pt stated he learned that he has a ?deep-seeded hatred for myself so I project that belief on others.??Pt reported benefits from identifying examples of different defense mechanisms and normalizing why they are used. Seemed to benefit from gaining awareness about the different defense mechanisms. Pt to continue IOP tx to promote use of healthy coping skills, reduce negative thinking patterns, and increase distress tolerance skills. Narrative Note: []
--- NOTE | 2025-02-07 11:15 | BH.SGPN.GN ---
Behaviors/Verbalizations/Mental Status: []Pt alert and oriented, casually dressed and groomed. Eye contact good. Motor activity appropriate. Speech within normal limits. Affect congruent, mood anxious and dysthymic. Thoughts linear, logical, no signs of hallucinations or delusions. Client Response/Progress/Benefit: [] Pt responded well to session, participating in activity and small group discussion. Group reviewed the rest of the defense mechanisms and discussed how these are adaptive, maladaptive, or somewhere in the solares. Pt's defense mechanisms included suppression, projection, and anticipation. Shared that these reinforce isolation and other depressive sx. Pt listened to inspector optical instrument teach different skills to help pt?s cope with or change their defense mechanisms. Pt appeared to benefit from gaining insight to the different defense mechanisms and learning coping skills. Shared wanting to begin practicing more awareness of when he is using these defense mechanisms. Pt will continue IOP tx to prevent decompensation, improve distress tolerance skills, and increase self-confidence. Narrative Note: []
--- NOTE | 2025-02-10 09:05 | BH.SGPN.GN ---
Behaviors/Verbalizations/Mental Status: [] Eye contact is good. Motor activity is disheveled. Appearance is casual. Speech is Appropriate. Mood is anxious. Affect is congruent. Thoughts are linear and logical. No evidence of psychosis. Reviewed daily check in sheet and no reports of suicidal ideations or intent. Client Response/Progress/Benefit: [] Pt participated at times during the group discussions. Attentive. Daily symptom tracker notes 2/5 for anxiety and /5 for depression. Able to identify mental health wins and healthy habits. Increased anxiety and stress related to psychosocial stressors however ? its getting better?. ? My life is back on track?. Stressed about upcoming discharge from [facility] this week, however is future-oriented AEB by researching jobs in the area. Benefited from group support, encouragement, and feedback. Will continue in [facility] to prevent decompensation, increase healthy coping, and improve functioning Narrative Note: []
--- NOTE | 2025-02-10 10:10 | BH.SGPN.GN ---
Behaviors/Verbalizations/Mental Status: [] Client alert and oriented, casually dressed and groomed. Eye contact fair. Motor activity appropriate. Speech within normal limits. Affect congruent, mood dysthymic. Thoughts linear, logical, no signs of hallucinations or delusions. Client Response/Progress/Benefit: [] Pt was an attentive and active participant, AEB taking notes and providing input in group discussion. Attentive during psychoeducation. Pt engaged during interactive discussion in which the group defined self-care and discussed its benefits. Group discussed barriers and benefits to self-care. Identified benefits as being more productive, feeling more grounded, feeling happier, decreased anxiety, better quality of life, and increased resilience. Pt participated in small groups where they worked to identify and challenged common self-care ?myths?. Benefited from increased awareness of self-care, its benefits, and the consequences of not utilizing self-care strategies. Will continue IOP tx to prevent decompensation,improve consistent use of healthy coping skills, and prevent decompensation.
--- NOTE | 2025-02-10 11:10 | BH.SGPN.GN ---
Behaviors/Verbalizations/Mental Status: []Client alert and oriented, casual appearance. Eye contact good. Motor activity appropriate. Speech within normal limits. Affect congruent, mood depressed and anxious. Thoughts linear, logical, no signs of hallucinations or delusions. Client Response/Progress/Benefit: [] Pt engaged participant AEB completing self-assessment worksheet and providing input throughout discussion. Pt completed worksheet identifying current self-care practices and what self-care activities Pt wants to start using. Pt selected emotional self-care to begin practicing more consistently. Pt plans to do this by journaling and practice acknowledging accomplishments. Appeared to benefit from completing the self-care evaluation and gaining insights into current self-care practices, as well as identifying areas in which Pt would like to improve upon. Pt will continue IOP tx to prevent decompensation, improve communication, and increase distress tolerance skills. Narrative Note: []
--- NOTE | 2025-02-12 09:05 | BH.SGPN.GN ---
Behaviors/Verbalizations/Mental Status: [] Eye contact is good. Motor activity is appropriate. Appearance is disheveled. Speech is Appropriate. Mood is anxious. Affect is congruent. Thoughts are linear and logical. No evidence of psychosis. Reviewed daily check in sheet and no reports of suicidal ideations or intent. Client Response/Progress/Benefit: [] Pt participated at times during the group discussions. Attentive. Daily symptom tracker notes 2/5 for anxiety and /5 for depression. Pt reports an overall improvement in mood. Anxiety is ?manageable?. Normalizing his anxiety rather than catastrophizing it. He reports being motivated and hopeful. Plans on ? taking care of myself? through making medical appointments, being medication compliant, and maintaining with mental health treatment. He job search also continues. Does not feel overwhelmed. Progress noted. Benefited from group support, encouragement, and feedback. Will continue in IOP to maintain gains. Narrative Note: []
--- NOTE | 2025-02-12 10:10 | BH.SGPN.GN ---
Behaviors/Verbalizations/Mental Status: [] Eye contact is good. Motor activity is appropriate. Appearance is casual. Speech is Appropriate. Mood is anxious and dysthymic. Affect is constricted. Thoughts are linear and logical. No evidence of psychosis. Client Response/Progress/Benefit: [] Pt responded well to session AEB actively participating throughout group. Pt was attentive throughout group activity discussing famous individuals and how they overcame failure to be successful. Pt helped group define fear of failure as well as how it can impact mental health and relationships. Participated in experiential activity and worked with group members to problem solve. Appeared to benefit from increased knowledge of what causes fear of failure and how it impacts people. Will continue IOP tx to prevent decompensation, increase emotion regulation, and challenge distorted thoughts.
--- NOTE | 2025-02-12 11:10 | BH.SGPN.GN ---
Behaviors/Verbalizations/Mental Status: []Pt alert and oriented, casually dressed and groomed. Eye contact good. Motor activity appropriate. Speech within normal limits. Affect congruent, mood euthymic. Thoughts linear, logical, no signs of hallucinations or delusions. Client Response/Progress/Benefit: [] Pt responded well to session, engaged in the experiential activity and attentive throughout group processing. Pt reported fear of failure has kept Pt from hobbies she used to enjoy and getting professional help. Pt completed fear of failure worksheet and was able to identify thoughts and behaviors that reinforce personal fear of failure including avoidance, self-sabotaging behaviors, and being too dependent on others. Pt participated in small group discussion regarding strategies to overcome fear of failure. Identified wanting to work on utilizing dialectical thinking and opposite action. Appeared to benefit from increased knowledge of strategies to combat fear of failure and gaining self-awareness. Pt will continue IOP tx to promote mood stability and reinforce healthy coping skills. Narrative Note: []
--- NOTE | 2025-02-13 09:00 | BH.SGPN.GN ---
Behaviors/Verbalizations/Mental Status: [] ?Eye contact is good. Motor activity is appropriate. Appearance is casual. Speech is Appropriate. Mood is euthymic. Affect is congruent. Thoughts are linear and logical. No evidence of psychosis. Reviewed daily check in sheet and no reports of suicidal ideations or intent. Client Response/Progress/Benefit: [] ?Pt was an active participant in group discussions. Attentive. Did well to identify 2 mental health wins including managing to get to be when he was hoping to and not staying up late on his computer. Discussed that this is something he has been consistently working on. Additional win noted as tomorrow being his last day in the program. Spent some time reflecting on areas of progress since admission, including increased confidence and improved emotion regulation. Stressor noted as ongoing issues in obtaining updated insurace. Reports he and his mother are working on it. Progress noted. Benefited from group support, encouragement, and feedback. Will continue in IOP to prevent decompensation, promote mood stability, and increase healthy coping consistency. Narrative Note: []
--- NOTE | 2025-02-13 10:10 | BH.SGPN.GN ---
Behaviors/Verbalizations/Mental Status: [] Eye contact is good. Motor activity is appropriate. Appearance is disheveled. Speech is Appropriate. Mood is euthymic. Affect is full. Thoughts are linear and logical. No evidence of psychosis. Client Response/Progress/Benefit: [] Pt was attentive during psychoeducation and participated in group activity. Group discussed what influences a person?s perspective and how perspective can positively or negatively impact mental health treatment. Group identified several factors that can influence perspective which include; mood, current stressors, sleep, health, hunger, and several others.?Pt appeared to benefit from increasing awareness of different perspectives and how they can affect mental health. Pt will continue IOP tx to prevent decompensation, improve daily functioning, and increase healthy coping.
--- NOTE | 2025-02-13 13:10 | BH.DS_ITS ---
Discharge Summary Demographics Date of Admission:: 12/18/24 Discharge Date: 02/13/25 Presenting Problems at Admission:: Patient is a 24-year-old single male with a history of depression and anxiety who was referred to the [facility] by the crisis team after an in-home assessment on November 15, 2024 where the patient verbalized suicidal ideation. Patient states that conflict in the family triggered his passive suicidal ideation. He states that he was never actively suicidal and denies having a specific plan for suicide ever. At the intake appointment 3 weeks ago for IOP the patient had stated that he felt he was a waste of air and better off . But the patient states that in recent weeks he has begun to feel much better. Pt has struggled throughout his life with maintaining a job. Pt stated he has lost majority of his jobs due to his mental health interfering with his job duties. Pt last worked September 2024. He endorses recent sadness, occasional hopelessness but denies worthlessness. He does endorse guilt and passive thoughts of on most days. Discharge Diagnoses:: 1. Major depressive disorder, recurrent, moderate F32.1 2. Generalized anxiety disorder 3. Rule out dependent traits 4. Primary support of work issues Reason for Discharge:: Client has made treatment progress with being able to manage stressors more effectively compared to prior to coming to IOP. Client was faced with several unexpected stressors that client stated in the past he wouldn't have handled as well as he did this time. Client has shown increased resilience and improved coping. Treatment Progress During Treatment & Response: Per DSM 5 cross-cutting scale at discharge client's depression and anxiety increased when compared to admission scores. This could be attributed to client reporting feeling better the week prior to starting IOP so he's total admission score was a 12. Client also has been faced with increased stressors like insurance issues, home changes, and stress with his relationship with his brother. However, through processing and discussing client's progress since starting IOP client could note significant areas of progress within himself when reflecting on how he was doing 3 weeks prior to starting IOP. Progress noted with client reporting improved ability to manage his emotions when faced with psychosocial stressors. Client has shown personal growth with working through various stressors while in IOP. Prior to IOP client struggled with managing stress which often led to him feeling suicidal. Client noted he has seen significant improvement with being able to work through those moments without having significant suicidal thoughts. Issues Still to be Addressed:: Client could benefit from continued work with improving distress tolerance, working on decreasing anxious avoidance, and improving view of self. Discharge Recommendations/Instructions:: Client is currently established with a continuous pillowcase cutter and therapist through [facility]. Client sees his continuous pillowcase cutter every week. Client is also [facility] with the [facility]. Client encouraged to speak with [facility] about being able to get his medications for a reduced fee through their pharmacy until his insurance is reactivated. Discharge Handout
--- NOTE | 2025-02-13 15:37 | BH.MDN ---
Multi-Disciplinary Note Note 45-min Individual: Time Started:: 11:15 Date: 02/13/25 Purpose of session/treatment goals addressed:: Purpose of session was to review treatment progress, discuss aftercare plan, and complete maintenance plan. Eye Contact:: Good Motor Activity:: Appropriate Appearance:: Casual Speech:: Appropriate Mood:: Euthymic Affect:: Congruent Thoughts:: Linear, Logical and No evidence of hallucinations/delusions noted Staff Interventions:: CBT techniques, discharge planning and strengths perspective Client Response:: Client reported although he is anxious about discharging from IOP today he recognizes he has made progress since starting IOP. Client stated prior to starting IOP he responded to a psychosocial stressor with suicidal thoughts and was assessed by crisis. Client stated he's been faced with numerous psychosocial stressors throughout the IOP program especially in the most recent couple weeks and has been able to manage those stressors more effectively compared to prior to IOP. Recorded he has seen improvement with decreased depression, decreased anxiety, improved understanding of his warning signs, and improved ability to manage his emotions. Client noted he recognizes he still has room to grow with managing unexpected stressors but recognizes he has come a long way. Client therapist work together to complete maintenance plan in which client identified potential triggers to mental health symptoms returning, warning signs that his mental health is declining, self-care activities he can practice on a regular basis, and healthy coping strategies that he has found to be useful throughout the program. Risks/Concerns:: Denies suicidal ideation, plan, or intention to date. future oriented. Progress Toward Goals/Plan:: Progress noted with client reporting improved ability to manage his emotions when faced with psychosocial stressors. Client has shown personal growth with working through various stressors while in IOP. Prior to IOP client struggled with managing stress which often led to him feeling suicidal. Client noted he has seen significant improvement with being able to work through those moments without having significant suicidal thoughts. Client stated he also can see a decrease in depression and anxiety. Client is to discharge from IOP today. Client is established with [facility] with case management and sees his case supervisor weekly. Client states once his insurance is sorted out he will establish with counseling. Time Stopped:: 13:00
== END 2025-02-14 06:45 | disposition home or self-care (01) ==
LOC: BHIOP 09:05
PROVIDERS: Referring Provider Psychiatry & Neurology Psychiatry; Visit Provider Psychiatry & Neurology Psychiatry
DX: F32.1 Major depressive disorder, single episode, moderate (principal); F41.1 Generalized anxiety disorder
CPT/HCPCS: S9480; 90837; 90853

== ENCOUNTER → 2025-05-28 | Outpatient (CLI) | payer MEDICAID, SELFPAY ==
[2025-05-30 12:08] LABS: QNTFERON TB Mitogen Value > 10.00 IU/mL (.); QNTFERON TB Nil Value 0.04 IU/mL (.); QNTFERON TB1+ Ag Value 0.04 IU/mL (.); QNTFERON TB2+ Ag Value 0.05 IU/mL (.); QNTIFERON TB Positive Criteria Negative (Negative)
== END | disposition home or self-care (01) ==
LOC: MTLAB 14:19
PROVIDERS: Referring Provider Physician Assistant; Visit Provider Physician Assistant
DX: L40.0 Psoriasis vulgaris (principal)
CPT/HCPCS: 36415; 86480